=== PATIENT | male | born 1970 | race Caucasian/White ===

== ENCOUNTER 2021-11-22 19:27 | Observation (INO) | payer OTHER, MEDICAID, SELFPAY ==
[2021-11-22 19:37] VITALS: BP 145/95; PULSE 90; RESP 18; TEMP 36.9; O2SAT 98; BMI 25.0
--- NOTE | 2021-11-22 19:44 | DI.RAD.S_ITS ---
PROCEDURE: XR HAND RT MIN 3V INDICATIONS: smashed between garage doors TECHNIQUE: Three views of the hand acquired. COMPARISON: None. FINDINGS: Bones: There is a comminuted mildly displaced fracture of the tuft of the 5th distal phalanx. Carpal bones are normally aligned. No suspicious bony lesions. Soft tissues: No suspicious soft tissue calcifications. Soft tissue edema is seen in the 5th finger and throughout the hand and wrist. IMPRESSION: Comminuted mildly displaced fracture of the 5th distal phalangeal tuft. Dictated by: Jun Stokes M.D. on 11/22/2021 at 20:01 Approved by: Jun Stokes M.D. on 11/22/2021 at 20:05
--- NOTE | 2021-11-22 22:03 | ED.GENADULT ---
HPI - General Adult General Chief complaint: Extremity Injury, Upper Stated complaint: RIGHT HAND INJURY Time Seen by Provider: 11/22/21 21:57 Source: patient Mode of arrival: Ambulatory Limitations: no limitations History of Present Illness HPI narrative: 51-year-old male who couple days ago cut his right little finger smashed between 2 portions of a garage door. He states he received a cut to the end of the finger. Since that time he has had swelling and discomfort. His brother who the patient reports is a Dr. prescribed him Bactrim. He has been on this for 3 days. He is here for continued discomfort and swelling. No fevers. Review of Systems Constitutional Constitutional: Denies fever(s) Musculoskeletal Comments: Pain to right little finger Integumentary/Breasts Comments: Swelling and redness to right hand Neurologic Neurologic: Reports system reviewed and no additional complaints, except as documented Hematologic/Lymphatic On Anticoagulants: No Patient History Medical History Patient denies medical problems Social History Smoking Status: Current every day smoker Smoking Status: Current every day smoker tobacco type: cigarettes and vaping alcohol intake frequency: 0-2 drinks per day Alcohol type: beer Substance Use Type: marijuana Exam Initial Vital Signs Initial Vital Signs: Vital Signs Temperature 98.4 F 11/22/21 19:37 Pulse Rate 90 11/22/21 19:37 Respiratory Rate 18 11/22/21 19:37 Blood Pressure 145/95 H 11/22/21 19:37 Pulse Oximetry 98 11/22/21 19:37 Const General: cooperative, healthy appearing and comfortable [facility] Head: normal to inspection and normocephalic Cardio Pulses: radial pulses present on the right Skin Other: Patient has skin tears had the distal little finger on the medial aspect. He has redness extending up the finger and on the dorsum of the right hand and also extending up the forearm to just distal to the elbow. Neuro Sensory Exam: no sensory deficits noted Extrem Other: Patient is tender on the most distal aspect of the right little finger. Does have tenderness with flexion-extension of the D IP joint. The PIP and MCP joint unremarkable. He does have a swollen right hand a swollen right forearm. His compartments are soft to palpation and not tender. Course Orders Ordered: ED Orders 11/22/21 19:44 XR hand RT min 3V Stat 11/22/21 23:10 Basic Metabolic Panel Stat Blood Culture Stat Complete Blood Count AUTO DIFF Stat Lactate (Lactic Acid) Stat 11/22/21 23:26 COVID19 -Nasal swab/Pre-Proc Stat Discontinued Medications Vancomycin HCl (Vancomycin) 1,000 mg in 200 mls @ 200 mls/hr IV NOW ONE Stop: 11/22/21 23:02 Last Infusion: 11/23/21 01:17 Dose: 0 mls/hr Documented by: Admin: 11/22/21 23:20 Dose: 200 mls/hr Documented by: KARLEE Ceftriaxone Sodium 1,000 mg/ (Sodium Chloride) 100 mls @ 200 mls/hr IV NOW ONE Stop: 11/22/21 22:04 Last Admin: 11/23/21 01:22 Dose: 200 mls/hr Documented by: KARLEE Vital Signs Vital signs: Vital Signs - 8 hr 11/22/21 19:37 Temperature 98.4 F Pulse Rate 90 Respiratory Rate 18 Blood Pressure 145/95 H Pulse Oximetry 98 Medical Decision Making Lab Data Lab results reviewed: Yes I reviewed the patient's lab results. Result diagrams: 11/22/21 23:10 11/22/21 23:10 Imaging Data Extremity x-ray #1: Radiologist's Impression: [place] [address] XRay Report Signed Patient: Kosta Fournier MR#: [id number] : 1970 Acct:[id number] Age/Sex: 51 / M Date of Service: 11/22/21 Loc: ED Accession Number: [id number] ?? Procedure: XR hand RT min 3V Ordering Provider: Augusto Perez D.O. PROCEDURE:? XR HAND RT MIN 3V ? INDICATIONS:? smashed between garage doors ? TECHNIQUE:? Three views of the hand acquired.? ? COMPARISON:? None. ? FINDINGS:? ? Bones:? There is a comminuted mildly displaced fracture of the tuft of the 5th distal phalanx.? Carpal bones are normally aligned.? No suspicious bony lesions.? ? Soft tissues:? No suspicious soft tissue calcifications.? Soft tissue edema is seen in the 5th finger and throughout the hand and wrist. ? ? IMPRESSION:? Comminuted mildly displaced fracture of the 5th distal phalangeal tuft. ? ? Dictated by: Jun Stokes M.D. on 11/22/2021 at 20:01 ? ? Approved by: Jun Stokes M.D. on 11/22/2021 at 20:05?? MDM Narrative Medical decision making narrative: Patient does have a tuft fracture the distal little finger. Has an obvious cellulitis to his little finger and hand and right forearm that his worsening despite 3 days of Bactrim. Patient not septic. Compartments are soft. Patient does require admission for IV antibiotics given the failure of outpatient oral antibiotics. Discusses the patient expressed understanding and agreement. Discussed case with LIZBETH Casas the night Hospital provider will admit for further evaluation and treatment. Discharge Plan Departure Patient Disposition: Admitted as Observation Clinical Impression: Cellulitis, Finger fracture, right Admit Date/Time: 11/22/21 22:20 Admit Provider: Heather Casas
[2021-11-22] MEDS: VANCOMYCIN 1,000 MG/200 ML PIGGYBACK 200 MG IV (23:20)
[2021-11-22 23:23] LABS: Add Manual Diff / Slide Review NO; Basophils Absolute Auto 100 /uL (0-100); Basophils Percent Auto 0.9 % (0-2); Eosinophils Absolute Auto 100 /uL (0-450); Eosinophils Percent Auto 1.4 % (2-4); Hematocrit 46.5 % (41-53); Hemoglobin 15.6 g/dL (13.5-17.5); Lymphocytes Absolute Auto 2200 /uL (1100-4500); Mean Corpuscular HGB Conc 33.5 % (30-36); Mean Corpuscular Hemoglobin 30.5 PG (26-34); Mean Corpuscular Volume 91.2 fL (80-100); Monocytes Absolute Auto 400 /uL (0-900); Monocytes Percent Auto 4.5 % (3-14); Neutrophils Absolute Auto 5900 /uL (1500-7000); Neutrophils Percent Auto 68.2 % (50-75); Platelet Count 292 X10^3/uL (150-400); Red Cell Distribution Width 13.4 % (11.6-14.8); White Blood Cell Count 8.7 X10^3/uL (4.5-11.0)
[2021-11-22 23:31] LABS: BUN Creatinine Ratio 15.6 (6-22); Blood Urea Nitrogen 12 mg/dL (9-20); Calcium 8.9 mg/dL (8.4-10.2); Carbon Dioxide 28 mmol/L (22-32); Chloride 103 mmol/L (98-107); Estimated Glomerular Filt Rate > 60.0 mL/min (>60); Glucose 126 mg/dL (70-100); HEMOLYSIS 17 (0-50); Potassium 3.9 mmol/L (3.4-5.1); Sodium 136 mmol/L (137-145)
[2021-11-22 23:44] LABS: COVID19 -Nasal RAPID Negative (Negative)
[2021-11-22 23:57] LABS: Lactate (Lactic Acid) 1.2 mmol/L (0.7-2.1)
[2021-11-23] VITALS (12 sets, daily range): BP systolic 102–150; BP diastolic 53–98; PULSE 67–98; RESP 14–20; TEMP 36.2–36.9; O2SAT 96–99; BMI 25.0
[2021-11-23] MEDS: cefTRIAXone 1,000 MG in SODIUM CHLORIDE 0.9% 100 ML 200 ML IV ×2 (01:22→20:58)
[2021-11-23] MEDS: SODIUM CHLORIDE 0.9% 1,000 ML 100 ML IV ×2 (06:11→18:49)
[2021-11-23] MEDS: VANCOMYCIN 1,500 MG/300 ML PIGGYBACK 200 MG IV (06:11)
--- NOTE | 2021-11-23 07:53 | P.HP_ITS ---
History of Present Illness History of Present Illness Date Patient Seen: 11/23/21 Time Patient Seen: 05:11 Chief complaint: RIGHT HAND INJURY Narrative: Kosta Fournier is a 51-year-old male with no medical history or medications who couple days ago he smashed his right hand in a garage door, and cut to the end of his 5th finger.?The patient notes that his right hand has had increasing redness, swelling, and discomfort.? The patient reports a doctor prescribed him Bactrim, which he took x 3 days, but his hand continued to worsen. The patient denies chest pain, shortness of breath, abdominal pain, nausea, vomiting, fever, body aches, or chills. 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 Patient's vitals upon admit were stable temp 97.1?, BP 125/98, HR 77, RR 16, O2 saturation 98% on room air. Patient's labs were grossly within normal limits, lactate was negative patient's right hand x-ray demonstrated comminuted mildly displaced fracture of the 5th distal phalangeal tuft. Patient admitted for right hand, forearm cellulitis, with 5th digit mildly displaced fracture. Patient History Medical History Patient denies medical problems Surgical History (Updated 11/24/21 @ 04:09 by OZ Frias) History of carpal tunnel surgery of left wrist History of carpal tunnel surgery of right wrist History of tonsillectomy Family & Social History Family History Mother Cancer Father Diabetes mellitus Social History: household members significant other,children Prior Living Arrangements House Safety & Behavioral: Feels Safe in Current Yes Environment Been Physically Hurt or No Threatened By a Person Suicidal Ideation Description None Suicide Plan Description No Plan Tobacco & Substance use: Tobacco type cigarettes Smoking Status Current every day smoker Smoking packs per day 0.75 alcohol intake current alcohol intake frequency 0-2 drinks per day Substance Use Type marijuana Meds Home Medications and Allergies Home Medications Medication Instructions Recorded Confirmed Type sulfamethoxazole 800 1 tab PO BID 11/23/21 11/23/21 History mg-trimethoprim 160 mg tablet Allergies Allergy/AdvReac Type Severity Reaction Status Date / Time No Known Drug Allergies Allergy Verified 11/23/21 09:48 Review of Systems Review of Systems Narrative: All 12 point systems reviewed with the patient and are negative except otherwise documented. Exam Vital Signs (past 8 hours): - 11/23/21 01:15 11/23/21 02:05 11/23/21 05:36 Temperature 97.1 F L 98.0 F Pulse Rate 84 77 80 Respiratory Rate 16 16 20 Blood Pressure 144/87 H 125/98 H 148/85 H Pulse Oximetry 99 98 97 11/23/21 07:43 Temperature 98.5 F Pulse Rate 87 Respiratory Rate 16 Blood Pressure 150/84 H Pulse Oximetry 97 Oxygen Delivery Method Room Air Narrative Exam Narrative: General: Patient is a well-developed, well-nourished male in no distress at this time. HEENT: Normocephalic, atraumatic, extraocular muscles intact, oral pharynx is clear and mucous membranes are moist. Neck is supple and symmetric, trachea is midline, no adenopathy, no thyroid enlargement, nontender, no masses palpated. Negative for JVD Chest: Normal AP diameter and contour without kyphoscoliosis, no nasal flaring, retractions, or tachypneic labored Lungs: Auscultation of all lung chamberlain are clear without adventitious sounds, wheezes, rhonchi, or rales. Cardio: S1 & S2 with regular rate and rhythm without murmur, rubs, or gallops, no carotid bruit, no cardiac pulsations present. Abdomen: Soft nontender, negative for organomegaly, or masses. Bowel sounds are present in all 4 quadrants without guarding or rebound, no CVA tenderness. Musculoskeletal: Right hand is erythemic, inflammation, warm to touch, blanchab le, radial pulse intact, raised erythemic area to the dorsal aspect of the wrist, distal end of the phalynx, medial paronychial infection. Patient is able to consultant with the right hand. Muscle strength and tone are equal within normal limits, no deformity, crepitus, effusions, cyanosis, clubbing or edema present. Full range of motion intact radial and pedal pulses are normal. Skin: see right hand documendation above. Warm dry and intact without rashes, ulcerations or petechiae. Neuro: Alert and orientated x3, strength is +5/5 in all extremities, sensation to touch intact, no gross deficits noted of cranial nerves. Psych: Patient has a well-kept appearance, appropriate affect, mental status attitude thought context and judgment are appropriate for age. Objective Labs Result Diagrams: 11/23/21 08:40 11/23/21 08:40 Labs: Laboratory Results - last 24 hr 11/22/21 11/22/21 11/22/21 23:10 23:10 23:10 WBC 8.7 RBC 5.10 Hgb 15.6 Hct 46.5 MCV 91.2 MCH 30.5 MCHC 33.5 RDW 13.4 Plt Count 292 Neut % (Auto) 68.2 Lymph % (Auto) 25.0 [place] % (Auto) 4.5 Eos % (Auto) 1.4 L Baso % (Auto) 0.9 Neut # (Auto) 5900 Lymph # (Auto) 2200 [place] # (Auto) 400 Eos # (Auto) 100 Baso # (Auto) 100 Sodium 136 L Potassium 3.9 Chloride 103 Carbon Dioxide 28 BUN 12 Creatinine 0.77 Estimated GFR > 60.0 BUN/Creatinine Ratio 15.6 Glucose 126 H Lactate 1.2 Calcium 8.9 Nasal Screen MRSA (PCR) SARS-CoV-2 (PCR) 11/22/21 11/23/21 23:26 04:15 WBC RBC Hgb Hct MCV MCH MCHC RDW Plt Count Neut % (Auto) Lymph % (Auto) [place] % (Auto) Eos % (Auto) Baso % (Auto) Neut # (Auto) Lymph # (Auto) [place] # (Auto) Eos # (Auto) Baso # (Auto) Sodium Potassium Chloride Carbon Dioxide BUN Creatinine Estimated GFR BUN/Creatinine Ratio Glucose Lactate Calcium Nasal Screen MRSA (PCR) Negative for mrsa SARS-CoV-2 (PCR) Negative Assessment & Plan Assessment & Plan narrative: Kosta Fournier is a 51-year-old male with no medical history or medications who couple days ago he smashed his right hand in a garage door, and cut to the end of his 5th finger.? Patient requires admittance for IV hydration, antibiotics, and evaluation by Dr. Marisabel Severino orthopedics. 1. Right hand/forearm cellulitis, with mildly displaced fracture of the 5th distal phalangeal tuft, and paronychial, acute, present on admission -Dr. Severino consult placed -It should be noted that the patient works in [employer] works. -possible dorsal infectious area of the right wrist. -vancomycin and Rocephin -blood cultures, wound cultures pending -anti-inflammatories and pain control -NS@100cc/hr -Elevated hand & apply Ice as tolerated. Code status:Full Surrogate decision maker: Bernice GARCIA PCR:Negative DVT/VTE prophylaxis:SCD's and lovenox Disposition: Patient admitted for observation expected length of stay less than 2 midnights. I have utilized all available immediate resources to obtain, update, or review the patient's current medications. I confirmed that the patient's advanced care plan is present, Code status is documented and/or surrogate decision maker is listed in the patient's medical record. Time Spent With Patient Critical Care time: I spent a total of [] minutes of critical care time on this patient's care today; this time is exclusive of procedural time. Quality VTE Deep Vein Thrombosis/Pulmonary Embolism Present on Admission: No
[2021-11-23 08:55] LABS: Add Manual Diff / Slide Review NO; Basophils Absolute Auto 100 /uL (0-100); Basophils Percent Auto 1.1 % (0-2); Eosinophils Absolute Auto 200 /uL (0-450); Eosinophils Percent Auto 2.2 % (2-4); Hematocrit 44.6 % (41-53); Lymphocytes Absolute Auto 2000 /uL (1100-4500); Lymphocytes Percent Auto 26.1 % (25-40); Mean Corpuscular HGB Conc 33.6 % (30-36); Mean Corpuscular Hemoglobin 30.9 PG (26-34); Mean Corpuscular Volume 92.1 fL (80-100); Monocytes Absolute Auto 500 /uL (0-900); Monocytes Percent Auto 6.5 % (3-14); Neutrophils Absolute Auto 4900 /uL (1500-7000); Neutrophils Percent Auto 64.1 % (50-75); Platelet Count 289 X10^3/uL (150-400); Red Blood Cell Count 4.85 X10^6/uL (4.5-5.9); Red Cell Distribution Width 13.6 % (11.6-14.8); White Blood Cell Count 7.7 X10^3/uL (4.5-11.0)
[2021-11-23 09:01] LABS: INR 1.1 (0.9-1.3); Prothrombin Time 12.6 SECONDS (10.1-12.7)
[2021-11-23 09:07] LABS: BUN Creatinine Ratio 14.3 (6-22); Blood Urea Nitrogen 11 mg/dL (9-20); Calcium 8.5 mg/dL (8.4-10.2); Carbon Dioxide 27 mmol/L (22-32); Chloride 103 mmol/L (98-107); Estimated Glomerular Filt Rate > 60.0 mL/min (>60); Glucose 121 mg/dL (70-100); HEMOLYSIS < 15 (0-50); Magnesium 2.1 mg/dL (1.6-2.3); Potassium 4.3 mmol/L (3.4-5.1); Sodium 136 mmol/L (137-145)
[2021-11-23] MEDS: ENOXAPARIN 40 MG/0.4 ML SYRINGE SUBCUT (09:44)
--- NOTE | 2021-11-23 11:52 | CM.DANOTE ---
DCP: Case received, EMR reviewed and met with patient. Introduced self and role. Was able to obtain information regarding patient's baseline activity level and current living situation. DCP assessment completed with information currently available. Patient is a 51 year old male who admitted yesterday evening to the care of the hospitalist team. PCP: Unknown at this time. Payer: confirmed: [employer]. Patient came to the hospital via private vehicle secondary to having a right hand injury. Patient had smashed his finger in his garage door. He ended up with mildly displaced fracture. He is currently getting IV ABO. According to notes, his brother, who is a doctor, had prescribed Bactrim, which he had been on for 3 days. He hand had then noted some increased swelling and discomfort. Discussed patient during team rounds, and hospitalist, Dr. Ac, placed an ortho consult. Met with patient in his room. He is alert and oriented. 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 He resides in [place] with his friend, Ginna. P: DCP to continue to follow for any needs. Patient should be able to go home when he is deemed medically stable. Will see what ortho recommends. Florence Burnette RN/[employer] Discharge Planning/Care Management CM Discharge Assessment Start: 11/23/21 11:48 Freq: Status: Active Protocol: Document 11/23/21 11:49 (Rec: 11/23/21 11:52 [id number]) Discharge Planning Assessment Assigned Cast Associate Florence Burnette RN/[employer] Advance Directives? No History Provided By Patient,Medical Record Prior Living Arrangements House Household Members significant other,children Type of transporation used prior to Drives own vehicle admit Independent with ADL's Yes Is patient alert and oriented? Yes Caregiver for Another No Barriers to Discharge No Discharge Plan Home Transportation Arrangement Friend Referrals Initiated None needed Whiteboard Updated in Patient Room with Yes name and ext. # of Cast Associate Review Status In Process Next Review Type Continued Stay Review
--- NOTE | 2021-11-23 12:52 | P.PN_ITS ---
Subjective Subjective Date Patient Seen: 11/23/21 Time Patient Seen: 12:52 Interval history: Brief update note. Patient is 51 year old male, no significant known PMH who presented with worsening R hand pain and swelling. Has a R 5th finger distal phalynx fracture, on exam possibly with paronychial infection and a probable infectious nodule on the dorsal aspect of his wrist as well. Remains on antibiotics. Pending orthopedic surgery evaluation. Exam Vital Signs (past 8 hours): - 11/23/21 05:36 11/23/21 07:23 11/23/21 07:43 Temperature 98.0 F 98.5 F Pulse Rate 80 87 Respiratory Rate 20 16 Blood Pressure 148/85 H 150/84 H Pulse Oximetry 97 98 97 11/23/21 09:30 11/23/21 11:00 Temperature 98.2 F Pulse Rate 98 H Respiratory Rate 20 Blood Pressure 102/53 L Pulse Oximetry 97 96 Oxygen Delivery Method Room Air Oxygen Flow Rate 0 Objective Labs Result Diagrams: 11/23/21 08:40 11/23/21 08:40 Labs: Laboratory Results - last 24 hr 11/22/21 11/22/21 11/22/21 23:10 23:10 23:10 WBC 8.7 RBC 5.10 Hgb 15.6 Hct 46.5 MCV 91.2 MCH 30.5 MCHC 33.5 RDW 13.4 Plt Count 292 Neut % (Auto) 68.2 Lymph % (Auto) 25.0 [place] % (Auto) 4.5 Eos % (Auto) 1.4 L Baso % (Auto) 0.9 Neut # (Auto) 5900 Lymph # (Auto) 2200 [place] # (Auto) 400 Eos # (Auto) 100 Baso # (Auto) 100 PT INR Sodium 136 L Potassium 3.9 Chloride 103 Carbon Dioxide 28 BUN 12 Creatinine 0.77 Estimated GFR > 60.0 BUN/Creatinine Ratio 15.6 Glucose 126 H Lactate 1.2 Calcium 8.9 Magnesium Nasal Screen MRSA (PCR) SARS-CoV-2 (PCR) 11/22/21 11/23/21 11/23/21 23:26 04:15 08:40 WBC 7.7 RBC 4.85 Hgb 15.0 Hct 44.6 MCV 92.1 MCH 30.9 MCHC 33.6 RDW 13.6 Plt Count 289 Neut % (Auto) 64.1 Lymph % (Auto) 26.1 [place] % (Auto) 6.5 Eos % (Auto) 2.2 Baso % (Auto) 1.1 Neut # (Auto) 4900 Lymph # (Auto) 2000 [place] # (Auto) 500 Eos # (Auto) 200 Baso # (Auto) 100 PT INR Sodium Potassium Chloride Carbon Dioxide BUN Creatinine Estimated GFR BUN/Creatinine Ratio Glucose Lactate Calcium Magnesium Nasal Screen MRSA (PCR) Negative for mrsa SARS-CoV-2 (PCR) Negative 11/23/21 11/23/21 08:40 08:40 WBC RBC Hgb Hct MCV MCH MCHC RDW Plt Count Neut % (Auto) Lymph % (Auto) [place] % (Auto) Eos % (Auto) Baso % (Auto) Neut # (Auto) Lymph # (Auto) [place] # (Auto) Eos # (Auto) Baso # (Auto) PT 12.6 INR 1.1 Sodium 136 L Potassium 4.3 Chloride 103 Carbon Dioxide 27 BUN 11 Creatinine 0.77 Estimated GFR > 60.0 BUN/Creatinine Ratio 14.3 Glucose 121 H Lactate Calcium 8.5 Magnesium 2.1 Nasal Screen MRSA (PCR) SARS-CoV-2 (PCR) [facility] Medical History Patient denies medical problems Social History household members: significant other and children Smoking Status: Current every day smoker alcohol intake: current Assessment & Plan Time Spent With Patient Critical Care time: I spent a total of [] minutes of critical care time on this patient's care today; this time is exclusive of procedural time. Quality VTE Deep Vein Thrombosis/Pulmonary Embolism Present on Admission: No
[2021-11-23] MEDS: VANCOMYCIN 1,250 MG/250 ML PIGGYBACK 250 MG IV ×2 (13:25→21:54)
[2021-11-23] MEDS: NICOTINE 21 MG PATCH TOP (17:23)
--- NOTE | 2021-11-23 20:31 | PM.HP.1 ---
History of Present Illness History of Present Illness Date Patient Seen: 11/23/21 Time Patient Seen: 10:30 Chief complaint: RIGHT HAND INJURY Narrative: This is a 51-year-old gentleman who accidentally slammed his right small finger in a door. He noted right finger pain. He noted he was having problems with progressive swelling of his entire right hand. It was initially bloody right after the injury. He denies a history of fever chills. He notes that it is not getting better and it was progressively worsening some and so he came to the emergency room because he was worried about an infection. He has not had any high fevers or chills. Patient History Medical History Patient denies medical problems Family & Social History Social History: household members significant other,children Prior Living Arrangements House Safety & Behavioral: Feels Safe in Current Yes Environment Been Physically Hurt or No Threatened By a Person Suicidal Ideation Description None Suicide Plan Description No Plan Tobacco & Substance use: Tobacco type cigarettes Smoking Status Current every day smoker Smoking packs per day 0.75 alcohol intake current alcohol intake frequency 0-2 drinks per day Substance Use Type marijuana Meds Home Medications and Allergies Home Medications Medication Instructions Recorded Confirmed Type sulfamethoxazole 800 1 tab PO BID 11/23/21 11/23/21 History mg-trimethoprim 160 mg tablet Allergies Allergy/AdvReac Type Severity Reaction Status Date / Time No Known Drug Allergies Allergy Verified 11/23/21 09:48 Review of Systems Review of Systems Narrative: Denies specifically high fevers or chills. Does note significant right hand pain. Has been attempting to elevate and ice. ROS: Yes All systems reviewed with the patient and are negative except as otherwise documented Exam Vital Signs (past 8 hours): - 11/23/21 13:00 11/23/21 15:00 11/23/21 17:00 Temperature 98.3 F Pulse Rate 67 Respiratory Rate 14 Blood Pressure 139/82 Pulse Oximetry 96 98 98 Oxygen Delivery Method Room Air Oxygen Flow Rate 0 Narrative Exam Narrative: HEENT is benign, lungs are clear, cor regular rate and rhythm, abdomen soft and benign, examination of his right upper extremity shows mild swelling in the right small finger he has focal tenderness along the radial aspect of his nail and slightly fluctuant region, there was also about a 1 cm erythematous mass on the dorsum of his wrist which is predominantly in the subcutaneous tissues it is not specifically fluctuant, there is some proximal erythema and mild adenopathy at the elbow Objective Labs Result Diagrams: 11/23/21 08:40 11/23/21 08:40 Labs: Laboratory Results - last 24 hr 11/22/21 11/22/21 11/22/21 23:10 23:10 23:10 WBC 8.7 RBC 5.10 Hgb 15.6 Hct 46.5 MCV 91.2 MCH 30.5 MCHC 33.5 RDW 13.4 Plt Count 292 Neut % (Auto) 68.2 Lymph % (Auto) 25.0 [place] % (Auto) 4.5 Eos % (Auto) 1.4 L Baso % (Auto) 0.9 Neut # (Auto) 5900 Lymph # (Auto) 2200 [place] # (Auto) 400 Eos # (Auto) 100 Baso # (Auto) 100 PT INR Sodium 136 L Potassium 3.9 Chloride 103 Carbon Dioxide 28 BUN 12 Creatinine 0.77 Estimated GFR > 60.0 BUN/Creatinine Ratio 15.6 Glucose 126 H Lactate 1.2 Calcium 8.9 Magnesium Nasal Screen MRSA (PCR) SARS-CoV-2 (PCR) 11/22/21 11/23/21 11/23/21 23:26 04:15 08:40 WBC 7.7 RBC 4.85 Hgb 15.0 Hct 44.6 MCV 92.1 MCH 30.9 MCHC 33.6 RDW 13.6 Plt Count 289 Neut % (Auto) 64.1 Lymph % (Auto) 26.1 [place] % (Auto) 6.5 Eos % (Auto) 2.2 Baso % (Auto) 1.1 Neut # (Auto) 4900 Lymph # (Auto) 2000 [place] # (Auto) 500 Eos # (Auto) 200 Baso # (Auto) 100 PT INR Sodium Potassium Chloride Carbon Dioxide BUN Creatinine Estimated GFR BUN/Creatinine Ratio Glucose Lactate Calcium Magnesium Nasal Screen MRSA (PCR) Negative for mrsa SARS-CoV-2 (PCR) Negative 11/23/21 11/23/21 08:40 08:40 WBC RBC Hgb Hct MCV MCH MCHC RDW Plt Count Neut % (Auto) Lymph % (Auto) [place] % (Auto) Eos % (Auto) Baso % (Auto) Neut # (Auto) Lymph # (Auto) [place] # (Auto) Eos # (Auto) Baso # (Auto) PT 12.6 INR 1.1 Sodium 136 L Potassium 4.3 Chloride 103 Carbon Dioxide 27 BUN 11 Creatinine 0.77 Estimated GFR > 60.0 BUN/Creatinine Ratio 14.3 Glucose 121 H Lactate Calcium 8.5 Magnesium 2.1 Nasal Screen MRSA (PCR) SARS-CoV-2 (PCR) x-rays show comminuted right distal finger tip fracture with acceptable alignment Assessment & Plan Assessment and plan (1) Cellulitis: Status: Acute (2) Finger fracture, right: Status: Acute Assessment & Plan narrative: His a comminute right small finger distal phalanx fracture. He also has hand Cl cellulitis and some obvious swelling on the dorsum of his right hand. I do think he should remain on IV antibiotics. He has some swelling along his nail but does not have a true Felon at this point. He also has swelling on the dorsum of his hand but it is not suggestive of a true abscess. The grease and see how he responds to the IV antibiotics. I did tell him it is okay for him to start absence soaks for his small finger as he is having pain predict particularly along the radial border of his nail. He may require I and D if he fails to respond to conservative treatment. Time Spent With Patient Critical Care time: I spent a total of [] minutes of critical care time on this patient's care today; this time is exclusive of procedural time. Quality VTE Deep Vein Thrombosis/Pulmonary Embolism Present on Admission: No
--- NOTE | 2021-11-24 00:40 | PC.NURSE ---
Patient is alert and oriented. Breath sounds CTA with RA sat of 97%. HRR. Denied nausea. BT hypoactive. Denied dysuria, frequency or urgency with urination. Is independent with mobility. Right hand/wrist is swollen with noted reddened area above wrist posteriorly. Right 5th finger noted to have abraised area at distal end. Denied pain. Able to do finger-thumb motion although limited in 5th finger. Refusing SCD's as is up independent in room. On contact isolation as wound culture gram stain + for gram + cocci. Fall risk score is low.
[2021-11-24 03:07] VITALS: BP 130/75; PULSE 70; RESP 18; TEMP 37.2; O2SAT 98
[2021-11-24 04:36] VITALS: O2SAT 98
[2021-11-24] MEDS: VANCOMYCIN TROUGH 1 REQUEST MISC (05:22)
[2021-11-24 06:01] LABS: Vancomycin Trough 9.4 ug/mL (10-20)
[2021-11-24] MEDS: VANCOMYCIN 1,250 MG/250 ML PIGGYBACK 250 MG IV (06:12)
[2021-11-24] MEDS: SODIUM CHLORIDE 0.9% 1,000 ML 100 ML IV (06:17)
--- NOTE | 2021-11-24 07:54 | P.PN_ITS ---
Subjective Subjective Date Patient Seen: 11/24/21 Time Patient Seen: 07:55 Interval history: Patient seen with Dr. Severino this morning. Patient states pain and swelling has improved. Denies fever chills. Exam Vital Signs (past 8 hours): - 11/24/21 03:07 11/24/21 04:36 Temperature 99.0 F Pulse Rate 70 Respiratory Rate 18 Blood Pressure 130/75 Pulse Oximetry 98 98 Oxygen Delivery Method Room Air Oxygen Flow Rate 0 Narrative Exam Narrative: 51-year-old male resting comfortably in bedside chair no apparent distress. Right 5th Finger swelling has improved. No erythema about the finger. Fingernail is intact. Mild tenderness to palpation distal tip of finger. 2 cm in diameter area of erythema along the dorsum of the right wrist. There is no fluctuance and nontender to palpation. Good range of motion of all fingers without pain. No pain with wrist flexion extension. Objective Labs Result Diagrams: 11/23/21 08:40 11/23/21 08:40 Labs: Laboratory Results - last 24 hr 11/23/21 11/23/21 11/23/21 08:40 08:40 08:40 WBC 7.7 RBC 4.85 Hgb 15.0 Hct 44.6 MCV 92.1 MCH 30.9 MCHC 33.6 RDW 13.6 Plt Count 289 Neut % (Auto) 64.1 Lymph % (Auto) 26.1 Stanley % (Auto) 6.5 Eos % (Auto) 2.2 Baso % (Auto) 1.1 Neut # (Auto) 4900 Lymph # (Auto) 2000 Stanley # (Auto) 500 Eos # (Auto) 200 Baso # (Auto) 100 PT 12.6 INR 1.1 Sodium 136 L Potassium 4.3 Chloride 103 Carbon Dioxide 27 BUN 11 Creatinine 0.77 Estimated GFR > 60.0 BUN/Creatinine Ratio 14.3 Glucose 121 H Calcium 8.5 Magnesium 2.1 Vancomycin Trough 11/24/21 05:22 WBC RBC Hgb Hct MCV MCH MCHC RDW Plt Count Neut % (Auto) Lymph % (Auto) Stanley % (Auto) Eos % (Auto) Baso % (Auto) Neut # (Auto) Lymph # (Auto) Stanley # (Auto) Eos # (Auto) Baso # (Auto) PT INR Sodium Potassium Chloride Carbon Dioxide BUN Creatinine Estimated GFR BUN/Creatinine Ratio Glucose Calcium Magnesium Vancomycin Trough 9.4 L PFSH Medical History Patient denies medical problems Surgical History History of carpal tunnel surgery of left wrist History of carpal tunnel surgery of right wrist History of tonsillectomy Family History Mother Cancer Father Diabetes mellitus Social History household members: significant other and children Smoking Status: Current every day smoker alcohol intake: current Assessment & Plan Assessment & Plan narrative: Comminuted right 5th finger distal phalanx fracture. Splint follow-up with [facility] in 1 week Multimodal pain management Hand cellulitis, improving, switch to oral antibiotics per hospitalist, follow- up with [facility] in 1 week for recheck or earlier if any worsening id erythema, pain, fever or chills Disposition: Discharge home when medically stable per hospitalist Time Spent With Patient Critical Care time: I spent a total of [] minutes of critical care time on this patient's care today; this time is exclusive of procedural time. Quality VTE Deep Vein Thrombosis/Pulmonary Embolism Present on Admission: No
[2021-11-24 09:00] VITALS: O2SAT 98
--- NOTE | 2021-11-24 09:08 | P.DS_ITS ---
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 The patient reports a doctor prescribed him Bactrim, which he took x 3 days, but his hand continued to worsen. The patient denies chest pain, shortness of breath, abdominal pain, nausea, vomiting, fever, body aches, or chills. 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 Patient's vitals upon admit were stable temp 97.1?, BP 125/98, HR 77, RR 16, O2 saturation 98% on room air.? Patient's labs were grossly within normal limits, lactate was negative patient's right hand x-ray demonstrated comminuted mildly displaced fracture of the 5th distal phalangeal tuft.? Patient admitted for right hand, forearm cellulitis, with 5th digit mildly displaced fracture. Discharge Providers Provider Date of admission: 11/22/21 22:20 Discharge Date: 11/24/21 Consults: 11/23/21 05:09 Consult to Physician Routine Comment: Consulting Provider: Marisabel Severino Reason for consultation: Rt hand cellulitis, 5th digit trauma injury/cellulitis Has provider been notified: No Discharge provider: Armando Ac DO Summary Hospital Course Discharge Diagnosis: 1. 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 He was given a prescription for an antibiotic as an outpatient but his swelling continued to worsen. He also developed a nodule on the dorsal aspect of his right wrist. He was started on IV antibiotics after failure of outpatient therapy and improved very quickly. He was seen and evaluated by Orthopedic surgery who did not recommend any surgical interventions at this time and recommended outpatient follow-up after improvement in his erythema and hand appearance. He was discharged on oral doxycycline and metronidazole for an additional 10 days. Exam Vital Signs (past 8 hours): - 11/24/21 03:07 11/24/21 04:36 Temperature 99.0 F Pulse Rate 70 Respiratory Rate 18 Blood Pressure 130/75 Pulse Oximetry 98 98 Oxygen Delivery Method Room Air Oxygen Flow Rate 0 Narrative Exam Narrative: General:? Patient is a well-developed, well-nourished male in no distress at this time. Lungs:?CTA Cardio:?RRR no m/r/g Musculoskeletal: Right hand has minimal erythema. No induration today. Swelling is improved. nodule on dorsal aspect of wrist is slightly smaller. Objective Labs Result Diagrams: 11/23/21 08:40 11/23/21 08:40 Labs: Laboratory Results - last 24 hr 11/23/21 11/24/21 08:40 05:22 Sodium 136 L Potassium 4.3 Chloride 103 Carbon Dioxide 27 BUN 11 Creatinine 0.77 Estimated GFR > 60.0 BUN/Creatinine Ratio 14.3 Glucose 121 H Calcium 8.5 Magnesium 2.1 Vancomycin Trough 9.4 L [facility] Medical History Patient denies medical problems Surgical History History of carpal tunnel surgery of left wrist History of carpal tunnel surgery of right wrist History of tonsillectomy Family History Mother Cancer Father Diabetes mellitus Social History household members: significant other and children Smoking Status: Current every day smoker alcohol intake: current Discharge Plan Discharge Plan Patient Disposition: Home Provider Discharge Comment: You were admitted to the hospital with swelling of your left hand. Found to have a small fracture and a skin infection near that site. You improved with antibiotics. Discharge home with two kinds of anitbiotics. Stop taking bactrim which you received earlier. Please follow up with [facility] in 1 week per their recommendations. Discharge orders & Medications Prescriptions: New doxycycline hyclate 100 mg tablet 100 mg PO BID 10 Days Qty: 20 0RF metronidazole 500 mg tablet 500 mg PO TID 10 Days Qty: 30 0RF Discontinued sulfamethoxazole-trimethoprim 800-160 mg tablet 1 tab PO BID 0RF Label Comments: TAKE ONE TABLET BY MOUTH TWICE DAILY Diet/Activity/Treatments Diet: Diet as Tolerated Activity: As tolerated Visit Report/Discharge Packet Instructions: DI for Finger Fracture, Doxycycline (By mouth) Discharge Data Attending Provider: Heather Casas VTE Deep Vein Thrombosis/Pulmonary Embolism Present on Admission: No
--- NOTE | 2021-11-24 09:32 | PC.NURSE ---
Pt is dressed and ready for discharge home. He has his own car here and is not taking any narcotics so feels safe to drive. IV has been removed. Went over d/c instructions with Pt. Discussed d/c meds, time of last dose, reviewed stroke education, encouraged fluid intake to prevent constipation or dehydration, reminded Pt that he is not to drink while on metronidazole and to finish both antibiotics as ordered. Recommended Pt consider taking probiotics if he starts to get diarrhea from the abx. Pt is to follow up with [facility] in 1 week. Pt denies further questions and was taken out via w/c by RN to pov with all belongings.
== END 2021-11-24 09:36 | disposition home or self-care (01) ==
LOC: ED 22:13 → AC 22:21
PROVIDERS: Admitting Provider Nurse Practitioner Family; Emergency Provider Emergency Medicine; Visit Provider Nurse Practitioner Family
DX: L03.113 Cellulitis of right upper limb (principal); S62.636A Displaced fracture of distal phalanx of right little finger, initial encounter for closed fracture; W24.0XXA Contact with lifting devices, not elsewhere classified, initial encounter; F17.210 Nicotine dependence, cigarettes, uncomplicated; Z20.822 Contact with and (suspected) exposure to COVID-19
CPT/HCPCS: 36415; 73130; 80048; 80202; 83605; 83735; 85025; 85610; 87040; 87070; 87075; 87077; 87147; 87186; 87205; 87635; 87797; 94760; 96361; 96365; 96366; 96367; 99283; 99284; 99406; C9803; G0378; J0696; J1650

== ENCOUNTER 2024-10-29 11:13 | Inpatient (IN) | payer OTHER, SELFPAY ==
[2021-11-23 01:57] VITALS: BMI 25.0
[2024-10-29] VITALS (27 sets, daily range): BP systolic 124–186; BP diastolic 82–104; PULSE 87–102; RESP 13–24; TEMP 36.3–37.4; O2SAT 86–100; BMI 31.4; BMI 30.8; BMI 28.8
--- NOTE | 2024-10-29 11:30 | PC.NURSE ---
Pt arrives by [facility]. Grapefruit sized swelling to right knee. Has scab in middle of knee.
--- NOTE | 2024-10-29 11:30 | ED.LOWEXIN ---
HPI - Extremity Injury (Lower) General Chief Complaint: Extremity Injury, Lower Stated Complaint: Knee septic Time Seen by Provider: 10/29/24 11:29 Source: EMS Mode of arrival: EMS History of Present Illness HPI Narrative: 54-year-old male with blister over his right knee 2 weeks ago, increasing pain and swelling to the right patellar area overnight, presented to ED [facility], transferred here by air for suspected right knee septic joint. He recalls having a blister over the anterior right patella about 2 weeks ago, no specific puncture or penetrating injury recalled. 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 Increasing pain and swelling overnight. No fall or injury or twisting mechanism. He has not feel feverish. Related Data Allergies Allergy/AdvReac Type Severity Reaction Status Date / Time No Known Drug Allergies Allergy Verified 11/23/21 09:48 Patient History Medical History Patient denies medical problems Surgical History History of carpal tunnel surgery of right wrist History of carpal tunnel surgery of left wrist History of tonsillectomy Family History Mother Cancer Father Diabetes mellitus Social History household members: spouse, significant other and children Smoking Status: Current every day smoker alcohol intake: current Smoking Status: Current every day smoker tobacco type: cigarettes and vaping alcohol intake frequency: 0-2 drinks per day Alcohol type: beer Exam Narrative Exam Narrative: GENERAL: Well-developed patient, in mild distress. HEAD: Atraumatic. Normocephalic. EYES: Pupils equal round and reactive. Extraocular motions intact. No scleral icterus. No injection or drainage. ENT: Nose without bleeding, purulent drainage. Throat without erythema, tonsillar hypertrophy or exudate. Airway patent. NECK: Trachea midline. Non tender CARDIOVASCULAR: Regular rate and rhythm without murmurs, gallops, or rubs. RESPIRATORY: Clear to auscultation. Breath sounds equal bilaterally. No wheezes, rales, or rhonchi. GASTROINTESTINAL: Abdomen soft, non-tender, nondistended. EXTREMITIES: Erythema over top of patella with noncrepitant tenderness, no gross knee effusion, inferior patellar pole eschar present without expressible fluid, no medial or lateral joint line tenderness BACK: Nontender without deformity or crepitance. No flank tenderness. NEURO: AOx3. Motor functions grossly nonfocal SKIN: No rash or erythema of visible areas Initial Vital Signs Initial Vital Signs: Vital Signs Pulse Rate 92 H 10/29/24 11:21 Pulse Oximetry 97 10/29/24 11:21 Course Orders Ordered: Acetaminophen (Acetaminophen 325 Mg Tablet) 650 mg PO Q6H [facility] Last Admin: 10/29/24 18:29 Dose: 650 mg Documented By: TLS Aspirin (Aspirin Ec 81 Mg Tablet) 81 mg PO BID [facility] Last Admin: 10/29/24 22:34 Dose: 81 mg Documented By: PARTH Bisacodyl (Bisacodyl 10 Mg Supp) 10 mg OH PRN PRN PRN Reason: Constipation Diphenhydramine HCl (Diphenhydramine 25 Mg Tablet) 50 mg PO Q6H PRN PRN Reason: mod to severe erythema, urticaria, or pruritis Diphenhydramine HCl (Diphenhydramine 50 Mg/Ml Vial) 50 mg IV Q6HR PRN PRN Reason: mild to moderate erythema, urticaria, or pruritis Docusate Sodium (Docusate 100 Mg Capsule) 100 mg PO BID [facility] Last Admin: 10/29/24 22:34 Dose: 100 mg Documented By: PARTH Ceftriaxone Sodium 2,000 mg/ (Sodium Chloride) 100 mls @ 200 mls/hr IV Q24H [facility] Vancomycin HCl (Vancomycin) 1,250 mg in 250 mls @ 250 mls/hr IV Q8H [facility] Last Admin: 10/29/24 22:34 Dose: 250 mls/hr Documented By: PARTH Lactated Ringer's (Lactated Ringers) 1,000 mls @ 100 mls/hr IV CONT [facility] Last Admin: 10/29/24 18:26 Dose: Not Given Documented By: TLS Ibuprofen (Ibuprofen 400 Mg Tablet) 400 mg PO Q4H [facility] Last Admin: 10/29/24 22:35 Dose: 400 mg Documented By: Admin: 10/29/24 18:25 Dose: Not Given Documented By: TLS Naloxone HCl (Naloxone 0.4 Mg/Ml Vial) 0.2 mg IV Q2MIN PRN PRN Reason: Opiate Reversal Ondansetron HCl (Ondansetron 4 Mg Odt) 4 mg PO Q4HR PRN PRN Reason: Nausea And Vomiting Ondansetron HCl (Ondansetron 4 Mg/2 Ml Inj) 4 mg IV Q4HR PRN PRN Reason: Nausea And Vomiting Oxycodone HCl (Oxycodone Ir 5 Mg Tablet) 5 mg PO Q3H PRN PRN Reason: Pain, Moderate (4-6) Polyethylene Glycol (Polyethylene Glycol 3350 17 Gm Powd.Pack) 17 gm PO DAILY [facility] Sennosides (Sennosides 8.6 Mg Tablet) 17.2 mg PO BEDTIME [facility] Last Admin: 10/29/24 22:34 Dose: 17.2 mg Documented By: AGFlorence Sodium Biphosphate/Sodium Phosphate (Fleets Enema) 1 each OH PRN PRN PRN Reason: Constipation Vancomycin HCl (Vancomycin Per Pharmacy) 1 request MISC NOW PRN PRN Reason: knee pain Vancomycin HCl (Vancomycin Trough) 1 request MISC 1300 ONE Stop: 10/30/24 13:01 Vancomycin HCl (Vancomycin Peak) 1 request MISC 1600 ONE Stop: 10/30/24 16:01 Discontinued Medications Acetaminophen (Acetaminophen 325 Mg Tablet) 650 mg PO Q6H PRN PRN Reason: Fever/Mild Pain (1-3) Benzocaine (Benzocaine/Menthol 1 Andriy Pkt) 1 each PO PRN PRN PRN Reason: Sore Throat Bupivacaine HCl (Bupivacaine 0.5% (Pf) 30 Ml Vial) 30 ml INJ NOW ONE Stop: 10/29/24 17:02 Last Admin: 10/29/24 17:01 Dose: 30 ml Documented By: CAYLA Sodium Chloride 1,000 ml/ (Gentamicin Sulfate 80 mg) 0 ml IRR NOW ONE Stop: 10/29/24 17:00 Last Admin: 10/29/24 17:00 Dose: 3 ml Documented By: CAYLA Hydromorphone HCl (Hydromorphone 0.5 Mg Inj) 0.5 mg IV NOW ONE Stop: 10/29/24 12:05 Last Admin: 10/29/24 12:12 Dose: 0.5 mg Documented By: Hydromorphone HCl (Hydromorphone 0.5 Mg Inj) 1 mg IV Q2H PRN PRN Reason: Pain, Severe (7-10) Last Admin: 10/29/24 15:18 Dose: 1 mg Documented By: RAE Hydromorphone HCl (Hydromorphone 1 Mg Inj) 0 mg IV Q5MIN PRN PRN Reason: Pain, Moderate (4-6) Hydromorphone HCl (Hydromorphone 1 Mg Inj) 0 mg IV Q5MIN PRN PRN Reason: Pain, Severe (7-10) Vancomycin HCl 2,000 mg/ (Sodium Chloride) 500 mls @ 250 mls/hr IV NOW ONE Stop: 10/29/24 12:48 Last Admin: 10/29/24 13:36 Dose: 250 mls/hr Documented By: Ceftriaxone Sodium 2,000 mg/ (Sodium Chloride) 100 mls @ 200 mls/hr IV NOW ONE Stop: 10/29/24 13:44 Last Infusion: 10/29/24 13:57 Dose: Infused Documented By: Admin: 10/29/24 13:10 Dose: 200 mls/hr Documented By: Sodium Chloride (Normal Saline 0.9%) 1,000 mls @ 100 mls/hr IV CONT [facility] Last Admin: 10/29/24 15:24 Dose: 100 mls/hr Documented By: RAE Acetaminophen (Ofirmev) 1,000 mg in 100 mls @ 400 mls/hr IV NOW ONE Stop: 10/29/24 17:16 Last Infusion: 10/29/24 17:22 Dose: Infused Documented By: Admin: 10/29/24 17:02 Dose: 400 mls/hr Documented By: TOMAS Naloxone HCl (Naloxone 0.4 Mg/Ml Vial) 0.2 mg IV Q2MIN PRN PRN Reason: Opiate Reversal Naloxone HCl (Naloxone 0.4 Mg/Ml Vial) 0.2 mg IV Q2MIN PRN PRN Reason: Opiate Reversal Ondansetron HCl (Ondansetron 4 Mg/2 Ml Inj) 4 mg IV NOW ONE Stop: 10/29/24 12:06 Last Admin: 10/29/24 12:12 Dose: 4 mg Documented By: Ondansetron HCl (Ondansetron 4 Mg/2 Ml Inj) 4 mg IV Q8HR PRN PRN Reason: Nausea And Vomiting Oxycodone HCl (Oxycodone Ir 5 Mg Tablet) 5 mg PO PACUNOW PRN PRN Reason: Mild or moderate pain Vital Signs Vital signs: Vital Signs - 8 hr 10/29/24 11:21 10/29/24 11:22 10/29/24 11:22 Temperature Pulse Rate 92 H 95 H Respiratory Rate Blood Pressure 180/104 H Pulse Oximetry 97 97 Oxygen Delivery Method 10/29/24 11:23 10/29/24 11:30 10/29/24 11:30 Temperature 98.4 F Pulse Rate 87 92 H Respiratory Rate 22 24 Blood Pressure 180/104 H 184/96 H Pulse Oximetry 98 92 Oxygen Delivery Method Room Air Room Air 10/29/24 12:02 10/29/24 12:03 10/29/24 12:03 Temperature Pulse Rate 98 H 96 H Respiratory Rate 17 Blood Pressure 180/101 H Pulse Oximetry 96 96 Oxygen Delivery Method 10/29/24 12:30 10/29/24 12:30 10/29/24 13:00 Temperature Pulse Rate 97 H 98 H Respiratory Rate 24 21 Blood Pressure 179/93 H Pulse Oximetry 93 92 Oxygen Delivery Method Room Air 10/29/24 13:00 Temperature Pulse Rate Respiratory Rate Blood Pressure 186/89 H Pulse Oximetry Oxygen Delivery Method MDM - Extremity Injury (Lower) Lab Data Attestation: I reviewed the patient's lab results. Lab results narrative: White blood cell count 97987, hemoglobin 15.5, platelets 383602. Basic metabolic panel unremarkable. Liver functions unremarkable. ESR, CRP, procalcitonin not elevated. 10/29/24 11:40 10/29/24 11:40 Labs: Lab Results 10/29/24 Range/Units 11:40 WBC 17.8 H (4.5-11.0) X10^3/uL RBC 5.17 (4.5-5.9) X10^6/uL Hgb 15.5 (13.5-17.5) g/dL Hct 47.1 (41-53) % MCV 91.1 (80-100) fL MCH 30.0 (26-34) PG MCHC 32.9 (30-36) % RDW 13.7 (11.6-14.8) % Plt Count 268 (150-400) X10^3/uL Neut % (Auto) 90.7 H (50-75) % Lymph % (Auto) 4.1 L (25-40) % Peach % (Auto) 4.9 (3-14) % Eos % (Auto) 0.0 L (2-4) % Baso % (Auto) 0.3 (0-2) % Neut # (Auto) 97561 H (7355-4676) /uL Lymph # (Auto) 700 L (3512-9176) /uL Peach # (Auto) 900 (0-900) /uL Eos # (Auto) 0 (0-450) /uL Baso # (Auto) 100 (0-100) /uL ESR 1 (0-15) MM/HR Sodium 134 L (137-145) mmol/L Potassium 3.8 (3.4-5.1) mmol/L Chloride 101 (98-107) mmol/L Carbon Dioxide 27 (22-32) mmol/L BUN 14 (9-20) mg/dL Creatinine 0.81 (0.66-1.25) mg/dL Estimated GFR > 60 (>60) mL/min BUN/Creatinine Ratio 17.3 (6-22) Glucose 121 H (70-100) mg/dL Lactate 1.0 (0.7-2.1) mmol/L Calcium 8.7 (8.4-10.2) mg/dL Total Bilirubin 0.6 (0.2-1.3) mg/dL AST 39 (17-59) IU/L ALT 54 H (<50) IU/L Alkaline Phosphatase 83 (38-126) U/L C-Reactive Protein 0.6 (<1.0) mg/dL Total Protein 7.2 (6.3-8.2) g/dL Albumin 4.4 (3.5-5.0) g/dL Globulin 2.8 (1.7-4.1) g/dL Albumin/Globulin Ratio 1.6 (1.0-2.8) Procalcitonin 0.054 (<0.5) ng/mL Imaging Data CT lower extremity knee region IV contrast: Radiologist's Impression: [address] [address] [address] Scan Report Signed Patient: Kosta Fournier MR#: [id number] : 1970 Acct:[id number] Age/Sex: 54 / M Date of Service: 10/29/24 Loc: ED Accession Number: [id number] Procedure: CT LE RT w con Ordering Provider: Luis A Griffin MD PROCEDURE: CT LE RT W CON INDICATIONS: right knee swelling, ?effusion, ?bursitis, ?drainable fluid TECHNIQUE: After the administration of intravenous contrast, 3 mm axial sections acquired of the right knee, with coronal and sagittal reformats. COMPARISON: None. FINDINGS: Image quality: Excellent. Bones: Right knee alignment is anatomic. No acute fracture or dislocation. Mild tricompartmental osteoarthritis is seen with joint space narrowing, subchondral sclerosis and tiny marginal osteophyte formation most notably in medial femoral tibial compartment. There is no suspicious intraosseous lesion. No significant patellar subluxation. No cortical erosion or abnormal periosteal reaction is seen. Soft tissues: Small to moderate suprapatellar joint effusion is seen, no calcified intra-articular loose bodies. Marked soft tissue swelling and edema along anterior and lateral aspect of right knee is seen. Moderate amount of fluid is seen anterior to the patella suggestive of prepatellar bursal fluid and bursitis. No discrete drainable abscess collection is identified. There is no quadriceps or patellar tendon rupture. anterior and posterior cruciate ligaments are within normal limits. IMPRESSION: 1. Marked soft tissue swelling and edema along anterior and lateral aspect of right knee with suggestion of fluid distending prepatellar bursa concerning for bursitis. No discrete drainable abscess collection. No subcutaneous emphysema. 2. Small to moderate suprapatellar joint effusion, no gross calcified intra-articular loose bodies. 3. Mild tricompartmental osteoarthritis more notably in medial femoral tibial compartment. No fracture or dislocation. No CT evidence of osteomyelitis. Dictated by: Beau Daniels M.D. on 10/29/2024 at 12:26 Approved by: Beau Daniels M.D. on 10/29/2024 at 12:30 [facility] Narrative Medical decision making narrative: 54-year-old male transferred by air from [facility] ED, concern for septic right knee, had erythema and pain inability to bear weight and move the knee per provider, who had contacted Dr. Beltran of Orthopedic surgery. Ortho called here, stating there has not been any workup at the sending facility, requests serum studies and call back. On my examination the erythema and swelling seems prepatellar, could not palpate any obvious intra-articular joint large effusion. We will hold on any attempted tap at this point. Case discussed with Dr. Beltran orthopedic surgery, consider CT knee IV contrast imaging to look for any drainable fluid collection prepatellar and also to evaluate for any significant intra-articular effusion that does not seem to be clinically obvious. CT right lower extremity with IV contrast. Impressions: ?Marked soft tissue swelling and edema along the anterior and lateral aspect of the right knee with suggestive of fluid distending prepatellar bursa concerning for bursitis. No discrete drainable abscess collection. No subcutaneous emphysema. Small to moderate suprapatellar joint effusion, no gross calcified intra-articular loose bodies. Mild tricompartmental osteoarthritis more notably in the medial femorotibial compartment. No fracture or dislocation. No CT evidence of osteomyelitis.? See radiology report IV Vancomycin, IV Ceftriaxone. Case discussed with Dr. Beltran orthopedic surgery, results of impressions read to him, we will hold off on needle aspiration procedure at this time. Agrees with empiric antibiotic regimen IV vancomycin and IV ceftriaxone. Patient can not bear weight and has infection, we will consult, admit to hospitalist advised. We will contact hospitalist. [phone], Dr. Severino orthopedic surgery here in the department is seeing the patient, requests admission to the hospitalist service, we will go to the operating room for drainage of infected prepatellar bursitis [facility] reports Dr. Ac accepts patient for admission to inpatient Critical Care Time Critical Care Time Total Critical Care Time: 35 Attestation: The high probability of a clinically significant, sudden or life threatening deterioration of the [orthopedic, musculoskeletal] system(s) required my full and direct attention, intervention and personal management. The aggregate critical care time was [35] minutes. This time is in addition to time spent performing reported procedures but includes the following: [x] Data Review and interpretation [x] Patient assessment and monitoring of vital signs [x] Documentation [x] Medication orders and management Discharge Plan Departure Patient Disposition: Admitted As Inpatient Clinical Impression: Septic prepatellar bursitis of right knee Admit Date/Time: 10/29/24 14:03 Admit Provider: Armando Ac
--- NOTE | 2024-10-29 11:39 | DI.CT.S_ITS ---
PROCEDURE: CT LE RT W CON INDICATIONS: right knee swelling, ?effusion, ?bursitis, ?drainable fluid TECHNIQUE: After the administration of intravenous contrast, 3 mm axial sections acquired of the right knee, with coronal and sagittal reformats. COMPARISON: None. FINDINGS: Image quality: Excellent. Bones: Right knee alignment is anatomic. No acute fracture or dislocation. Mild tricompartmental osteoarthritis is seen with joint space narrowing, subchondral sclerosis and tiny marginal osteophyte formation most notably in medial femoral tibial compartment. There is no suspicious intraosseous lesion. No significant patellar subluxation. No cortical erosion or abnormal periosteal reaction is seen. Soft tissues: Small to moderate suprapatellar joint effusion is seen, no calcified intra-articular loose bodies. Marked soft tissue swelling and edema along anterior and lateral aspect of right knee is seen. Moderate amount of fluid is seen anterior to the patella suggestive of prepatellar bursal fluid and bursitis. No discrete drainable abscess collection is identified. There is no quadriceps or patellar tendon rupture. anterior and posterior cruciate ligaments are within normal limits. IMPRESSION: 1. Marked soft tissue swelling and edema along anterior and lateral aspect of right knee with suggestion of fluid distending prepatellar bursa concerning for bursitis. No discrete drainable abscess collection. No subcutaneous emphysema. 2. Small to moderate suprapatellar joint effusion, no gross calcified intra-articular loose bodies. 3. Mild tricompartmental osteoarthritis more notably in medial femoral tibial compartment. No fracture or dislocation. No CT evidence of osteomyelitis. Dictated by: Beau Daniels M.D. on 10/29/2024 at 12:26 Approved by: Beau Daniels M.D. on 10/29/2024 at 12:30
[2024-10-29 11:50] LABS: Add Manual Diff / Slide Review NO; Basophils Absolute Auto 100 /uL (0-100); Basophils Percent Auto 0.3 % (0-2); Eosinophils Absolute Auto 0 /uL (0-450); Hematocrit 47.1 % (41-53); Hemoglobin 15.5 g/dL (13.5-17.5); Lymphocytes Absolute Auto 700 /uL (1100-4500); Lymphocytes Percent Auto 4.1 % (25-40); Mean Corpuscular HGB Conc 32.9 % (30-36); Mean Corpuscular Volume 91.1 fL (80-100); Monocytes Absolute Auto 900 /uL (0-900); Monocytes Percent Auto 4.9 % (3-14); Neutrophils Absolute Auto 16200 /uL (1500-7000); Neutrophils Percent Auto 90.7 % (50-75); Platelet Count 268 X10^3/uL (150-400); Red Blood Cell Count 5.17 X10^6/uL (4.5-5.9); Red Cell Distribution Width 13.7 % (11.6-14.8); White Blood Cell Count 17.8 X10^3/uL (4.5-11.0)
--- NOTE | 2024-10-29 12:06 | PC.NURSE ---
Pt reports pain to right knee. Verbal order received from Dr Griffin for 0.5 mg IV hydromorphone and 4 mg IV Zofran.
[2024-10-29 12:08] LABS: Alanine Aminotransferase 54 IU/L (<50); Albumin 4.4 g/dL (3.5-5.0); Albumin Globulin Ratio 1.6 (1.0-2.8); Alkaline Phosphatase 83 U/L (38-126); Aspartate Aminotransferase 39 IU/L (17-59); BUN Creatinine Ratio 17.3 (6-22); Bilirubin Total 0.6 mg/dL (0.2-1.3); Blood Urea Nitrogen 14 mg/dL (9-20); C-Reactive Protein Quant 0.6 mg/dL (<1.0); Calcium 8.7 mg/dL (8.4-10.2); Carbon Dioxide 27 mmol/L (22-32); Chloride 101 mmol/L (98-107); Estimated Glomerular Filt Rate > 60 mL/min (>60); Globulin 2.8 g/dL (1.7-4.1); Glucose 121 mg/dL (70-100); HEMOLYSIS 18 (0-50); Potassium 3.8 mmol/L (3.4-5.1); Sodium 134 mmol/L (137-145); Total Protein 7.2 g/dL (6.3-8.2)
[2024-10-29] MEDS: HYDROMORPHONE 0.5 MG INJ IV (12:12)
[2024-10-29] MEDS: ONDANSETRON 4 MG/2 ML INJ IV (12:12)
[2024-10-29 12:14] LABS: Erythrocyte Sedimentation Rate 1 MM/HR (0-15)
[2024-10-29 12:21] LABS: Procalcitonin 0.054 ng/mL (<0.5)
[2024-10-29] MEDS: cefTRIAXone 2,000 MG in SODIUM CHLORIDE 0.9% 100 ML 200 MG IV (13:10)
[2024-10-29] MEDS: VANCOMYCIN 2,000 MG in SODIUM CHLORIDE 0.9% 500 ML 250 MG IV (13:36)
[2024-10-29] MEDS: HYDROMORPHONE 0.5 MG INJ 1 MG IV (15:18)
[2024-10-29] MEDS: SODIUM CHLORIDE 0.9% 1,000 ML 100 ML IV (15:24)
--- NOTE | 2024-10-29 15:54 | PC.NURSE ---
Patient arrived from the Emergency Department to room 223 at 1515 via stretcher. Patient is A&Ox4, able to make needs known. Patient arrived in 06/27 severe R knee pain, 1mg of Dilaudid administered to R over 60 seconds. Patient left to surgery at 1545-- VSS: 151/92, 98% O2 on RA, 102 HR, 22 RR, 99.2F.
--- NOTE | 2024-10-29 16:02 | PM.HP.1 ---
History of Present Illness History of Present Illness Date Patient Seen: 10/29/24 Time Patient Seen: 15:00 Chief complaint: Knee septic Narrative: 54 M with no known PMH was airlifted from [place] for possible infected R knee bursitis. Patient had received IV dilaudid on my exam, was lethargic, history provided by spouse. This morning he developed severe right knee pain after dealing with a blister over his knee for approximately the past 2 weeks. His knee was very inflamed and red and he immediately presented to the [place] Emergency room. Spouse reports that he could not move his right knee without significant pain and had markedly reduced range of motion. In the emergency room, the patient was mildly tachycardic, mildly hypertensive but the remainder of his vital signs were unremarkable. Laboratory evaluation showed a leukocytosis with WBC of 17.8, although his ESR was 1 and CRP was unremarkable at 0.6. Procalcitonin was unremarkable at 0.054. He was given ceftriaxone and vancomycin, he had CT imaging which showed a likely prepatellar bursitis as opposed to a knee joint. Orthopedic surgery consulted in the emergency room and recommended an incision and drainage for which she is undergoing this afternoon. Medicine team will admit. [facility] Medical History Patient denies medical problems Surgical History History of carpal tunnel surgery of right wrist History of carpal tunnel surgery of left wrist History of tonsillectomy Family History Mother Cancer Father Diabetes mellitus Social History household members: spouse, significant other and children Smoking Status: Current every day smoker alcohol intake: current Meds Home Medications and Allergies Allergies Allergy/AdvReac Type Severity Reaction Status Date / Time No Known Drug Allergies Allergy Verified 11/23/21 09:48 Review of Systems Review of Systems Narrative: All other systems reviewed with the patient and are negative unless otherwise stated. Exam Vital Signs (past 8 hours): - 10/29/24 11:21 10/29/24 11:22 10/29/24 11:22 Temperature Pulse Rate 92 H 95 H Respiratory Rate Blood Pressure 180/104 H Pulse Oximetry 97 97 Oxygen Delivery Method Oxygen Flow Rate 10/29/24 11:23 10/29/24 11:30 10/29/24 11:30 Temperature 98.4 F Pulse Rate 87 92 H Respiratory Rate 22 24 Blood Pressure 180/104 H 184/96 H Pulse Oximetry 98 92 Oxygen Delivery Method Room Air Room Air Oxygen Flow Rate 10/29/24 12:02 10/29/24 12:03 10/29/24 12:03 Temperature Pulse Rate 98 H 96 H Respiratory Rate 17 Blood Pressure 180/101 H Pulse Oximetry 96 96 Oxygen Delivery Method Oxygen Flow Rate 10/29/24 12:30 10/29/24 12:30 10/29/24 13:00 Temperature Pulse Rate 97 H 98 H Respiratory Rate 24 21 Blood Pressure 179/93 H Pulse Oximetry 93 92 Oxygen Delivery Method Room Air Oxygen Flow Rate 10/29/24 13:00 10/29/24 13:30 10/29/24 13:30 Temperature Pulse Rate 100 H Respiratory Rate 13 Blood Pressure 186/89 H 171/91 H Pulse Oximetry 86 L Oxygen Delivery Method Oxygen Flow Rate 10/29/24 14:00 10/29/24 14:00 10/29/24 14:04 Temperature Pulse Rate 94 H Respiratory Rate 23 Blood Pressure 168/86 H Pulse Oximetry 94 95 Oxygen Delivery Method Oxygen Flow Rate 0 10/29/24 14:30 10/29/24 14:30 10/29/24 15:15 Temperature 99.2 F Pulse Rate 93 H 102 H Respiratory Rate 22 24 22 Blood Pressure 166/89 H 151/92 H Pulse Oximetry 95 98 98 Oxygen Delivery Method Room Air Oxygen Flow Rate 0 Oxygen Delivery Method Room Air Oxygen Flow Rate 0 Narrative Exam Narrative: General:? Patient is well developed and well nourished, lethargic, ill appearing, uncomfortable. HEENT:? Normocephalic, atraumatic, extraocular muscles intact, oral pharynx is clear and mucous membranes are dry.. Lungs:? CTA b/l no wheezing rhonchi or rales. Cardio:?RRR no m/r/g. Abdomen: S NT ND. Musculoskeletal:? Muscle strength and tone are equal within normal limits. R knee with 3x3 cm erythema and warmth over the patellar area with central eschar. No active purulence. Extremities: No edema. Objective Labs 10/29/24 11:40 10/29/24 11:40 Labs: Laboratory Results - last 24 hr 10/29/24 11:40 WBC 17.8 H RBC 5.17 Hgb 15.5 Hct 47.1 MCV 91.1 MCH 30.0 MCHC 32.9 RDW 13.7 Plt Count 268 Neut % (Auto) 90.7 H Lymph % (Auto) 4.1 L [place] % (Auto) 4.9 Eos % (Auto) 0.0 L Baso % (Auto) 0.3 Neut # (Auto) 61524 H Lymph # (Auto) 700 L [place] # (Auto) 900 Eos # (Auto) 0 Baso # (Auto) 100 ESR 1 Sodium 134 L Potassium 3.8 Chloride 101 Carbon Dioxide 27 BUN 14 Creatinine 0.81 Estimated GFR > 60 BUN/Creatinine Ratio 17.3 Glucose 121 H Lactate 1.0 Calcium 8.7 Total Bilirubin 0.6 AST 39 ALT 54 H Alkaline Phosphatase 83 C-Reactive Protein 0.6 Total Protein 7.2 Albumin 4.4 Globulin 2.8 Albumin/Globulin Ratio 1.6 Procalcitonin 0.054 Assessment & Plan Assessment & Plan narrative: 1. Bacterial Prepatellar bursitis, rule out R knee septic joint, rule out sepsis - Orthopedic surgery recommends I&D in the OR, going later this afternoon, likely pre-patellar bursitis but rule out infected R knee - continue ceftriaxone and vancomycin. - no blood cultures obtained from the ER, ordered now - follow up OR cultures - Elevated WBC, no other end organ damage notable on labs, sepsis likely ruled out with SOFA <2. - NPO now, IV fluids Code: Full, surrogate is patient's spouse DVT: SCDs I have utilized all available immediate resources to obtain, update, or review the patient's current medications. Dispo: patient admitted under inpatient status. Likely to discharge home, may need PT/OT evaluations depending on mobility after surgery. Additional history obtained via discussions with the ER provider. These discussions contributed to the creation of the above assessment and plan. I have reviewed patient's presenting documentation, labs, and imaging personally. Time-Based Coding :: [TOTAL MINUTES] spent with patient and on the chart (including review of chart, obtaining history, exam, reviewing outside data, placing orders, documenting exam and treatment plan, and counseling patient) on [DATE]. Quality VTE Deep Vein Thrombosis/Pulmonary Embolism Present on Admission: No
--- NOTE | 2024-10-29 16:16 | PM.HP.1 ---
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 He notes that it was getting better and it was resolving and then yesterday he noted significant worsening pain. It progressively worsened and he went to the emergency room at [facility]. He was noted to have an abrasion with hypertrophied skin on the anterior aspect of his knee erythema and significant swelling in his prepatellar bursa. He had significant restricted range motion and there was concern for possible septic knee. He also had an elevated white count. He was transferred to [facility] Emergency room for further evaluation. [facility] Medical History Patient denies medical problems Surgical History History of carpal tunnel surgery of right wrist History of carpal tunnel surgery of left wrist History of tonsillectomy Family History Mother Cancer Father Diabetes mellitus Social History household members: spouse, significant other and children Smoking Status: Current every day smoker alcohol intake: current Meds Home Medications and Allergies Allergies Allergy/AdvReac Type Severity Reaction Status Date / Time No Known Drug Allergies Allergy Verified 11/23/21 09:48 Review of Systems Review of Systems Narrative: No recent fever cough or cold. He has chronic problem with his left knee. He has some thickening of the left knee prepatellar bursa. His left knee is not currently symptomatic. He did have fevers at home. And significant pain and difficulty with weight-bearing on the right leg. Exam Vital Signs (past 8 hours): - 10/29/24 11:21 10/29/24 11:22 10/29/24 11:22 Temperature Pulse Rate 92 H 95 H Respiratory Rate Blood Pressure 180/104 H Pulse Oximetry 97 97 Oxygen Delivery Method Oxygen Flow Rate 10/29/24 11:23 10/29/24 11:30 10/29/24 11:30 Temperature 98.4 F Pulse Rate 87 92 H Respiratory Rate 22 24 Blood Pressure 180/104 H 184/96 H Pulse Oximetry 98 92 Oxygen Delivery Method Room Air Room Air Oxygen Flow Rate 10/29/24 12:02 10/29/24 12:03 10/29/24 12:03 Temperature Pulse Rate 98 H 96 H Respiratory Rate 17 Blood Pressure 180/101 H Pulse Oximetry 96 96 Oxygen Delivery Method Oxygen Flow Rate 10/29/24 12:30 10/29/24 12:30 10/29/24 13:00 Temperature Pulse Rate 97 H 98 H Respiratory Rate 24 21 Blood Pressure 179/93 H Pulse Oximetry 93 92 Oxygen Delivery Method Room Air Oxygen Flow Rate 10/29/24 13:00 10/29/24 13:30 10/29/24 13:30 Temperature Pulse Rate 100 H Respiratory Rate 13 Blood Pressure 186/89 H 171/91 H Pulse Oximetry 86 L Oxygen Delivery Method Oxygen Flow Rate 10/29/24 14:00 10/29/24 14:00 10/29/24 14:04 Temperature Pulse Rate 94 H Respiratory Rate 23 Blood Pressure 168/86 H Pulse Oximetry 94 95 Oxygen Delivery Method Oxygen Flow Rate 0 10/29/24 14:30 10/29/24 14:30 10/29/24 15:15 Temperature 99.2 F Pulse Rate 93 H 102 H Respiratory Rate 22 24 22 Blood Pressure 166/89 H 151/92 H Pulse Oximetry 95 98 98 Oxygen Delivery Method Room Air Oxygen Flow Rate 0 10/29/24 16:04 Temperature 99.3 F Pulse Rate 102 H Respiratory Rate 20 Blood Pressure 159/87 H Pulse Oximetry 91 Oxygen Delivery Method Room Air Oxygen Flow Rate Oxygen Delivery Method Room Air Oxygen Flow Rate 0 Narrative Exam Narrative: HEENT is benign, lungs are clear cor regular rate and rhythm, he appears to be uncomfortable, he has severe pain over the anterior aspect of his right knee and obvious swelling over the prepatellar bursal region, has restricted range motion in the right knee. There is thickened tissue on the anterior aspect of his knee. And an abrasion with a break in the skin over the prepatellar bursal region, there is minimal to no joint effusion. Objective Labs 10/29/24 11:40 10/29/24 11:40 Labs: Laboratory Results - last 24 hr 10/29/24 11:40 WBC 17.8 H RBC 5.17 Hgb 15.5 Hct 47.1 MCV 91.1 MCH 30.0 MCHC 32.9 RDW 13.7 Plt Count 268 Neut % (Auto) 90.7 H Lymph % (Auto) 4.1 L [place] % (Auto) 4.9 Eos % (Auto) 0.0 L Baso % (Auto) 0.3 Neut # (Auto) 95345 H Lymph # (Auto) 700 L [place] # (Auto) 900 Eos # (Auto) 0 Baso # (Auto) 100 ESR 1 Sodium 134 L Potassium 3.8 Chloride 101 Carbon Dioxide 27 BUN 14 Creatinine 0.81 Estimated GFR > 60 BUN/Creatinine Ratio 17.3 Glucose 121 H Lactate 1.0 Calcium 8.7 Total Bilirubin 0.6 AST 39 ALT 54 H Alkaline Phosphatase 83 C-Reactive Protein 0.6 Total Protein 7.2 Albumin 4.4 Globulin 2.8 Albumin/Globulin Ratio 1.[address] scan is remarkable for swelling in the prepatellar bursa, no evidence of fracture minimal joint effusion Assessment & Plan Assessment and plan (1) Septic prepatellar bursitis of right knee: Status: Acute (2) Cellulitis: Status: Acute Plan Septic right knee prepatellar bursitis. He has an elevated white count. He has significant pain and obvious swelling in the prepatellar bursa. I do not think he has evidence of a septic knee. I have recommended irrigation and debridement. The plan is that he is going to be admitted for IV antibiotics. We will get culture and sensitivity and Gram stain from the prepatellar bursa and my tentative plan is to leave a drain in. The procedure options risks benefits and complications were discussed with him and his . I discussed his situation with his phone. We will plan for admission to [facility] and antibiotics after surgery. Time-Based Coding :: [TOTAL MINUTES] spent with patient and on the chart (including review of chart, obtaining history, exam, reviewing outside data, placing orders, documenting exam and treatment plan, and counseling patient) on [DATE]. Quality VTE Deep Vein Thrombosis/Pulmonary Embolism Present on Admission: No
--- NOTE | 2024-10-29 16:52 | SUR.OPER ---
Supine on padded OR bed, head on pillow, arms padded and tucked at sides, legs uncrossed, safety belt at waist, tape over blanket over lower left leg right leg draped free leg .
[2024-10-29] MEDS: SODIUM CHLORIDE 0.9% 1,000 ML, GENTAMICIN 80 MG IRR (17:00)
[2024-10-29] MEDS: BUPIVACAINE 0.5% (PF) 30 ML VIAL INJ (17:01)
[2024-10-29] MEDS: ACETAMINOPHEN IV 1,000 MG/100 ML VIAL 400 MG IV (17:02)
[2024-10-29] MEDS: ACETAMINOPHEN 325 MG TABLET 650 MG PO (18:29)
--- NOTE | 2024-10-29 18:40 | P.OP_ITS ---
Operative Date/Time/Diagnoses Date of procedure: 10/29/24 Time of procedure: 16:30 Pre-op diagnosis: Septic right knee prepatellar bursitis Post-op diagnosis: same Procedure & Clinicians Procedure: Irrigation and excisional debridement right knee prepatellar bursitis, bursectomy right knee Same procedure as scheduled: Yes Indications: This is a 54-year-old gentleman with severe worsening right knee pain whose exam was consistent with a right knee septic prepatellar bursitis. He was brought the operating room irrigation and debridement and prepatellar bursectomy. The procedure options risks benefits and complications were discussed in detail. He does have an elevated white count in his clear evidence of an infected prepatellar bursa. Surgeon: Marisabel Severino Click Yes if Unassisted: Yes Anesthesia Type: General Operative Notes Findings: Grossly infected prepatellar bursa with gross pus. Bursectomy without difficulty Closure Type: primary Specimen(s): other (G stain culture and sensitivity and cell count) Estimated Blood Loss (mL): 50 Blood products transfused: none Tourniquet time (min): 18 Procedure in detail: Patient was brought to the operating room. He underwent the induction of a general anesthesia. We initially held the antibiotics as he had already had several doses of antibiotics and we were awaiting cultures. His right lower extremity was prepped and draped in a standard sterile fashion. Tourniquet was elevated to 250 mmHg. Approximally 10 cc of grossly purulent fluid was aspirated from the right knee prepatellar area. It was grossly purulent. A skin incision was made lateral to the midline in order to allow exposure and a bursectomy but to minimize direct contact on the anterior aspect of his patella. He did have skin changes over the anterior aspect of his patella which was hy pertrophied and it appeared to have a break in the skin directly over the anterior aspect of his patella. This did not appear to be full-thickness requiring excision. Skin incision was made dissection was carried out through skin and subcutaneous tissues. There was gross purulent material and marked inflammation and thickening of the prepatellar bursa. An excisional debridement was performed removing subcutaneous tissue sharply and a bursectomy was performed with a combination of knife as well as a cloward rongeur and a Leksell rongeur. Once all of the grossly purulent material in the bursa had been debrided a 3 L bag of normal saline irrigation was used to irrigate the knee. Hemostasis was achieved. The wound was closed with interrupted nylon. A drain was placed in the prepatellar bursal area. The wound was dressed sterilely with antibiotic ointment and Xeroform. Patient tolerated the procedure well. She was transferred to recovery room in satisfactory condition. Complications: none Post-operative Condition: stable Disposition: Acute Care Plan for aftercare: IV antibiotics for 24-48 hours. Check cultures. Follow clinical course. Leave drain in until postop day 2. Likely okay to be discharged home on appropriate oral antibiotics in 48 hours or so. Follow up 10-14 days postoperatively. Weightbearing as tolerated right lower extremity.
[2024-10-29 18:44] LABS: Body Fluid Red Blood Cells 24144 /uL; Body Fluid Tot Nucleated Cells 294796 /uL
[2024-10-29 19:13] LABS: Body Fluid Appearance CLOUDY; Body Fluid Clotted? NO CLOTS PRESENT; Body Fluid Color YELLOW; Lymphocytes Body Fluid 4 %; Neutrophils Body Fluid 96 %
--- NOTE | 2024-10-29 19:54 | PC.NURSE ---
late entry-1515 pt to AC from ED, erythema and edema to R knee. dime sized scab vs lesion to top of patella. knee warm and tender to touch.
[2024-10-29] MEDS: VANCOMYCIN 1,250 MG/250 ML PIGGYBACK 250 MG IV (22:34)
[2024-10-29] MEDS: DOCUSATE 100 MG CAPSULE PO (22:34)
[2024-10-29] MEDS: ASPIRIN EC 81 MG TABLET PO (22:34)
[2024-10-29] MEDS: SENNOSIDES 8.6 MG TABLET 17.2 MG PO (22:34)
[2024-10-29] MEDS: IBUPROFEN 400 MG TABLET PO (22:35)
[2024-10-30 01:00] VITALS: BP 155/88; PULSE 84; RESP 18; TEMP 36.3; O2SAT 96
[2024-10-30 03:00] VITALS: O2SAT 97
[2024-10-30] MEDS: IBUPROFEN 400 MG TABLET PO ×4 (05:36→21:36)
[2024-10-30] MEDS: ACETAMINOPHEN 325 MG TABLET 650 MG PO ×3 (05:37→18:07)
[2024-10-30] MEDS: VANCOMYCIN 1,250 MG/250 ML PIGGYBACK 250 MG IV ×2 (05:37→13:58)
[2024-10-30 06:42] LABS: Add Manual Diff / Slide Review NO; Basophils Absolute Auto 100 /uL (0-100); Basophils Percent Auto 0.4 % (0-2); Eosinophils Absolute Auto 0 /uL (0-450); Eosinophils Percent Auto 0.1 % (2-4); Hematocrit 43.5 % (41-53); Hemoglobin 14.4 g/dL (13.5-17.5); Lymphocytes Absolute Auto 1200 /uL (1100-4500); Mean Corpuscular Hemoglobin 30.1 PG (26-34); Mean Corpuscular Volume 91.2 fL (80-100); Monocytes Absolute Auto 1000 /uL (0-900); Neutrophils Absolute Auto 18500 /uL (1500-7000); Neutrophils Percent Auto 88.5 % (50-75); Platelet Count 270 X10^3/uL (150-400); Red Blood Cell Count 4.77 X10^6/uL (4.5-5.9); Red Cell Distribution Width 13.3 % (11.6-14.8); White Blood Cell Count 20.8 X10^3/uL (4.5-11.0)
[2024-10-30 06:58] LABS: BUN Creatinine Ratio 16.1 (6-22); Blood Urea Nitrogen 14 mg/dL (9-20); Calcium 8.8 mg/dL (8.4-10.2); Carbon Dioxide 27 mmol/L (22-32); Chloride 101 mmol/L (98-107); Estimated Glomerular Filt Rate > 60 mL/min (>60); Glucose 131 mg/dL (70-100); HEMOLYSIS < 15 (0-50); Magnesium 2.4 mg/dL (1.6-2.3); Potassium 4.2 mmol/L (3.4-5.1); Sodium 133 mmol/L (137-145)
--- NOTE | 2024-10-30 07:59 | PM.PN.1 ---
Subjective Subjective Interval history: S: His pain is much improved. He has a wrapped knee with a drain in place. He lives in [place], but wants leave the hospital today. He would stay overnight [place] at a hotel with his . Exam Vital Signs (past 8 hours): - 10/30/24 01:00 10/30/24 03:00 Temperature 97.4 F L Pulse Rate 84 Respiratory Rate 18 Blood Pressure 155/88 H Pulse Oximetry 96 97 Oxygen Delivery Method Room Air Oxygen Flow Rate 0 Oxygen Delivery Method Room Air Oxygen Flow Rate 0 Narrative Exam Narrative: NAD, alert and oriented. Fluent speech. Lungs are clear, normal rate and effort. Heart is regular, no murmur gallop or rub. Abdomen is soft, non distended. Extremities are free of edema. Right knee is wrapped, with blood in his surgical drain. Objective Labs 10/30/24 05:58 10/30/24 05:58 Labs: Laboratory Results - last 24 hr 10/29/24 10/29/24 10/30/24 11:40 17:10 05:58 WBC 17.8 H 20.8 H RBC 5.17 4.77 Hgb 15.5 14.4 Hct 47.1 43.5 MCV 91.1 91.2 MCH 30.0 30.1 MCHC 32.9 33.0 RDW 13.7 13.3 Plt Count 268 270 Neut % (Auto) 90.7 H 88.5 H Lymph % (Auto) 4.1 L 6.0 L [place] % (Auto) 4.9 5.0 Eos % (Auto) 0.0 L 0.1 L Baso % (Auto) 0.3 0.4 Neut # (Auto) 35439 H 99913 H Lymph # (Auto) 700 L 1200 [place] # (Auto) 900 1000 H Eos # (Auto) 0 0 Baso # (Auto) 100 100 ESR 1 Sodium 134 L 133 L Potassium 3.8 4.2 Chloride 101 101 Carbon Dioxide 27 27 BUN 14 14 Creatinine 0.81 0.87 Estimated GFR > 60 > 60 BUN/Creatinine Ratio 17.3 16.1 Glucose 121 H 131 H Lactate 1.0 Calcium 8.7 8.8 Magnesium 2.4 H Total Bilirubin 0.6 AST 39 ALT 54 H Alkaline Phosphatase 83 C-Reactive Protein 0.6 Total Protein 7.2 Albumin 4.4 Globulin 2.8 Albumin/Globulin Ratio 1.6 Procalcitonin 0.054 Fluid Color Yellow Fluid Appearance Cloudy [place] 398[address] Fld Tot Nucleated Cell 456373 Fluid Neutrophils % 96 Fluid Lymphocytes % 4 Body Fluid Clot No clots present [facility] Medical History Patient denies medical problems Surgical History History of carpal tunnel surgery of right wrist History of carpal tunnel surgery of left wrist History of tonsillectomy Family History Mother Cancer Father Diabetes mellitus Social History household members: spouse, significant other and children Smoking Status: Current every day smoker alcohol intake: current Assessment & Plan Assessment & Plan narrative: 1. Bacterial Prepatellar bursitis, rule out R knee septic joint, rule out sepsis - Orthopedic surgery recommends I&D in the OR, going later this afternoon, likely pre-patellar bursitis but rule out infected R knee - continue ceftriaxone and vancomycin. PLAN: Follow cultures and D/W Ortho. Code: Full, surrogate is patient's spouse DVT: SCDs Time-Based Coding :: [TOTAL MINUTES] spent with patient and on the chart (including review of chart, obtaining history, exam, reviewing outside data, placing orders, documenting exam and treatment plan, and counseling patient) on [DATE]. Quality VTE Deep Vein Thrombosis/Pulmonary Embolism Present on Admission: No
[2024-10-30 08:00] VITALS: BP 128/80; PULSE 81; RESP 16; TEMP 36.6; O2SAT 98
[2024-10-30] MEDS: ASPIRIN EC 81 MG TABLET PO ×2 (09:53→21:37)
--- NOTE | 2024-10-30 10:35 | PT.IIE ---
Current Diagnoses Cellulitis, unspecified (10/29/24) Other infective bursitis, right knee (10/29/24) Surgery Performed Operation Date: 10/29/24 16:45 Actual Procedures p Incision and Drainage Knee(Right) - Marisabel Severino MD Surgical History (Last Reviewed 10/30/24 @ 07:59 by Elton Hannah MD) History of carpal tunnel surgery of left wrist History of carpal tunnel surgery of right wrist History of tonsillectomy Medical History (Last Reviewed 10/30/24 @ 07:59 by Elton Hannah MD) Patient denies medical problems Physical Therapy Inpatient Evaluation/Re-Eval M1 PT/OT-IP Prior Functional Status Start: 10/30/24 13:21 Freq: NEEDED Status: Active Protocol: Document 10/30/24 10:35 AB (Rec: 10/30/24 13:32 AB [id number]) Medical Review Prior Functional Status Medical History Reviewed Yes Communication able to make needs known Mobility and Gait pt was independent with all mobilities and ambulation without AD Social History Household Members spouse,children Number of Floors (Floors) Two Floors Number of Stairs To Enter/Railing? 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 PT-IP Current Condition Start: 10/30/24 13:21 Freq: NEEDED Status: Active Protocol: Document 10/30/24 10:35 AB (Rec: 10/30/24 13:32 AB [id number]) Physical Therapy Current Condition Current Condition Evaluation Date 10/30/24 Treatment Diagnosis R knee sepsis s/p I&D & bursectomy; difficulty in walking Onset Date 10/29/24 M3 PT-IP Subjective Start: 10/30/24 13:21 Freq: NEEDED Status: Active Protocol: Document 10/30/24 10:35 AB (Rec: 10/30/24 13:32 AB [id number]) Subjective Physical Therapy Visit Type Type Initial Evaluation Visit Start Time 10:35 Visit Stop Time 11:05 Number of NOVELTY TWISTER OPERATOR Visits 0 Physical Therapy Visit Comments Patient Comments agreeable to do PT Therapy Pain Assessment Pain When Pain Assessed During Mobility Pain Present Pain Present Pain Reported Location Right Knee Scale Used slight pain per pt Pain Management Techniques Apply Cold,Distraction, Modification of Treatment,Re- positioning,Timing of Activity with Medications M4 PT-IP Mobility and Gait Start: 10/30/24 13:21 Freq: NEEDED Status: Active Protocol: Document 10/30/24 10:35 AB (Rec: 10/30/24 13:32 AB [id number]) PT-Bed Mobility Assessment Supine to Sit Supine to Sit Independent PT-Transfer Assessment Sit to and From Stand Sit to and from Stand Independent,Use of Upper Extremities Equipment Transfer Assistive Device None,Front Wheeled Walker Orthotic/Prosthetic Devices or Brace: No Transfers Transfer Destination Chair Transfer Technique ambulated Transfer Ability Level of Assist Standby Assistance,1 Person Assistance,Use of Upper Extremities Comments Mobility Comments pt in bed and agreed to do PT. obtained PLOF and home set up . completed supine to sit I. able to sit on EOB SBA. sit to stand I and ambulated in room using FWW mod I. Assessed ambulation without AD and completed in room SBA. pt agreed to do stairs and ambulation out in the hallway ~ 250 ft without AD SBA for safety. presents with antalgic gait but without LOB. pt completed up/down steps using R rail ascending x 2 sets SBA. pt ambulated back to his room SBA and sat on chair. positioned pt on chair. call light and table placed within reach. educated pt on gentle ROM on R knee and safety. pt understood. No further PT needs at this time. Pt agreed. informed nurse Gait Assessment Gait Gait Assistance Required: Standby Assistance Distance (Feet) 250 Able to Maintain Weight Bearing Status Yes During Gait Assistive Devices Assistive Device None,Gait Belt,Front Wheeled Walker Orthotic/Prosthetic Devices or Brace: No Gait Deviations General Gait Pattern Antalgic Factors Limiting Gait Function Factors Limiting Gait Function Decreased Activity Tolerance, Decreased Strength,Pain,Poor Balance Stair Climbing Assessment Evaluation Level of Assist On Stairs Standby Assistance Devices Stair Climbing Assistive Devices Right Railing Technique/Endurance Stair Climbing Direction Ascend and Descend Stair Climbing Technique Step to Step Number of Steps Climbed 3 Query Text: Stair Climbing Set # Repetitions (reps) 2 PT-Balance Assessment Sitting Balance and Reactions Static Sitting Balance Ability Normal Dynamic Sitting Balance Ability Normal Standing Balance and Reactions Static Standing Balance Ability Good Dynamic Standing Balance Ability Good Device Used without AD M5 PT-IP Objective Assessments Start: 10/30/24 13:21 Freq: NEEDED Status: Active Protocol: Document 10/30/24 10:35 AB (Rec: 10/30/24 13:32 AB [id number]) Orientation Orientation/Cognition Level of Alertness Alert Orientation Name,Age,Birthday,Month,Date, Year,Day of Week,Place, Situation Language Function Ability No Deficits Noted Safety Awareness Understands Safety Issues Memory Description No Deficits Noted Gross Range of Motion Lower Extremity ROM Assessment Right Impaired Impairments R knee tightness with movement Strength Lower Extremity Strength Assessment Left Impaired Knee 4-/5 Muscle Tone Muscle Tone WNL Yes M6 PT-IP Treatment Start: 10/30/24 13:21 Freq: NEEDED Status: Active Protocol: Document 10/30/24 10:35 AB (Rec: 10/30/24 13:32 AB [id number]) Physical Therapy Treatment Education Education Provided Safety M7 PT-IP Assessment and Plan Start: 10/30/24 13:21 Freq: NEEDED Status: Active Protocol: Document 10/30/24 10:35 AB (Rec: 10/30/24 13:32 AB [id number]) PT Summary Assessment and Plan Potential Rehabilitation Potential Good Status of Condition at Evaluation Stable Summary Impairments ROM,Strength,Balance,Transfers ,Gait,Activity Tolerance Assessment Summary pt is a 54 y/o M who is admitted for R knee sepsis and underwent I&D and bursectomy POD 1. pt requiring SBA for ambulation without AD for safety. No LOB. pt plans to go home and will have his family assist him at home if needed. No further PT intervention indicated. Frequency of Treatment Frequency Of Treatment Once a Day Treatment Plan Physical Therapy Treatment Plan Bed Mobility Training,Transfer Training,Gait Training, Therapeutic Exercise,Balance Retraining,Post Op Education, Discharge Planning,Hot or Cold Pack,Neuromuscular Re-ed, Coordination Retraining,Manual Therapy Weight Bearing Status Weight Bearing Status Weight Bear as Tolerated Allowed Weight Bearing Amount (enter % RLE WBAT or #) (%) Recommendations To Nursing Amount of Assist Needed Standby Assistance Discharge Recommendations PT Discharge Recommendations Home with Assistance, Outpatient PT Transportation Needs at Discharge Private Vehicle
--- NOTE | 2024-10-30 11:29 | P.PN_ITS ---
Subjective Subjective Date Patient Seen: 10/30/24 Time Patient Seen: 11:31 Interval history: Patient's pain is controlled with oral medication. ?Pain is localized to surgical site. Drain is active. ?He is working in physical therapy. Patient declines any new numbness or tingling at the surgical extremity. ?Patient denies any shortness of breath, dizziness, light-headedness, nausea, vomiting, fever or chills. Exam Vital Signs (past 8 hours): - 10/30/24 08:00 Temperature 98 F Pulse Rate 81 Respiratory Rate 16 Blood Pressure 128/80 Pulse Oximetry 98 Oxygen Flow Rate 0 Oxygen Delivery Method Room Air Oxygen Flow Rate 0 Narrative Exam Narrative: 5/5 strength in hip flexors, quadriceps, hamstrings, DF, PF, EHL bilaterally. Sensation to light touch intact throughout BLE. Calves soft, compressible, nontender. Dressing placed intraoperatively CDI. Drain present and functioning. Minimal output. Resp Effort & Inspection: normal respiratory effort and able to speak in complete sentences Objective Labs 10/30/24 05:58 10/30/24 05:58 Labs: Laboratory Results - last 24 hr 10/29/24 10/29/24 10/30/24 11:40 17:10 05:58 WBC 17.8 H 20.8 H RBC 5.17 4.77 Hgb 15.5 14.4 Hct 47.1 43.5 MCV 91.1 91.2 MCH 30.0 30.1 MCHC 32.9 33.0 RDW 13.7 13.3 Plt Count 268 270 Neut % (Auto) 90.7 H 88.5 H Lymph % (Auto) 4.1 L 6.0 L [place] % (Auto) 4.9 5.0 Eos % (Auto) 0.0 L 0.1 L Baso % (Auto) 0.3 0.4 Neut # (Auto) 84973 H 69378 H Lymph # (Auto) 700 L 1200 Coffee # (Auto) 900 1000 H Eos # (Auto) 0 0 Baso # (Auto) 100 100 ESR 1 Sodium 134 L 133 L Potassium 3.8 4.2 Chloride 101 101 Carbon Dioxide 27 27 BUN 14 14 Creatinine 0.81 0.87 Estimated GFR > 60 > 60 BUN/Creatinine Ratio 17.3 16.1 Glucose 121 H 131 H Lactate 1.0 Calcium 8.7 8.8 Magnesium 2.4 H Total Bilirubin 0.6 AST 39 ALT 54 H Alkaline Phosphatase 83 C-Reactive Protein 0.6 Total Protein 7.2 Albumin 4.4 Globulin 2.8 Albumin/Globulin Ratio 1.6 Procalcitonin 0.054 Fluid Color Yellow Fluid Appearance [place] [address] Fld Tot Nucleated Cell [id number] Fluid Neutrophils % 96 Fluid Lymphocytes % 4 Body Fluid Clot No clots present [facility] Medical History Patient denies medical problems Surgical History History of carpal tunnel surgery of right wrist History of carpal tunnel surgery of left wrist History of tonsillectomy Family History Mother Cancer Father Diabetes mellitus Social History household members: spouse and children Smoking Status: Current every day smoker alcohol intake: current Assessment & Plan Post-op Postoperative Procedures: Procedures Operation Date: 10/29/24 16:45 Actual Procedure Side Surgeon p Incision and Drainage Knee Right Marisabel A MD [place] Postoperative day: 1 Postoperative status: doing well Postoperative plan narrative: Streptococcus group C on culture sample. Sensitivities pending IV antibiotics for 24-48 hours. Leave drain in until postop day 2. Likely okay to be discharged home on appropriate oral antibiotics in 48 hours or so. Follow up 10-14 days postoperatively in clinic. Weightbearing as tolerated right lower extremity. Discharge disposition and antibiotics per Medicine. Time Spent With Patient Time with patient: less than 15 minutes Quality VTE Deep Vein Thrombosis/Pulmonary Embolism Present on Admission: No
--- NOTE | 2024-10-30 11:42 | OT.IP.EVAL ---
Current Diagnoses Cellulitis, unspecified (10/29/24) Other infective bursitis, right knee (10/29/24) Surgery Performed Operation Date: 10/29/24 16:45 Actual Procedures p Incision and Drainage Knee(Right) - Marisabel Severino MD Past Medical History (Last Reviewed 10/30/24 @ 07:59 by Elton Hannah MD) Patient denies medical problems Surgical History (Last Reviewed 10/30/24 @ 07:59 by Elton Hannah MD) History of carpal tunnel surgery of left wrist History of carpal tunnel surgery of right wrist History of tonsillectomy Occupational Therapy Inpatient Evaluation/Re-Eval M1 PT/OT-IP Prior Functional Status Start: 10/30/24 13:21 Freq: NEEDED Status: Active Protocol: Document 10/30/24 16:51 CGR (Rec: 10/30/24 16:58 CGR [id number]) Medical Review Prior Functional Status Medical History Reviewed Yes Communication pt is an effective verbal communicator Mobility and Gait pt was independent with all mobilities and ambulation without AD Activities of Daily Living and IADL's Pt was IND in all ADLs and IADLs at baseline. 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 Social History Household Members spouse,children Number of Floors (Floors) Two Floors Number of Stairs To Enter/Railing? 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 OT-IP Current Condition Start: 10/30/24 16:51 Freq: Status: Active Protocol: Document 10/30/24 16:51 CGR (Rec: 10/30/24 16:58 CGR [id number]) Occupational Therapy Current Condition Current Condition Evaluation Date 10/30/24 Treatment Diagnosis I&D R knee for spetic perpatellar bursitis Diagnosis Onset Date 10/29/24 Weight Bearing Status Weight Bearing Status Weight Bear as Tolerated M3 OT- IP Subjective and Pain Start: 10/30/24 16:51 Freq: Status: Active Protocol: Document 10/30/24 16:51 CGR (Rec: 10/30/24 16:58 CGR [id number]) OT- Subjective Occupational Therapy Visit Type Type Initial Evaluation Visit Start Time 11:22 Visit Stop Time 11:42 Notes Pt's present throughout OT Pain Assessment Pain When Pain Assessed At Rest Pain Present Pain Present Denied Pain M4 OT- IP ADL's Start: 10/30/24 16:51 Freq: Status: Active Protocol: Document 10/30/24 16:51 CGR (Rec: 10/30/24 16:58 CGR [id number]) OT [id number] General Evaluation Self-Feeding Ability Independent Areas Needing Assistance Drinking From Cup/Glass Comments OT Self-Feeding Comments drinking coffee OT ADL-Grooming General Evaluation Grooming Ability Standby Assistance Areas Needing Assistance Face Washing Comments OT Grooming Comments standing at sink OT ADL-Oral Care Comments Oral Care Comments pt declined to brush teeth as he was currently drinking coffee OT ADL-Dressing General Eval Lower Body Dressing Ability Independent Areas Needing Assistance Socks Comments OT Dressing Comments seated in chair OT ADL-Toileting General Evaluation Toileting Ability Independent Comments OT Toileting Comments simulated seated on toielt OT ADL-Bathing Comments OT Bathing Comments not peformed M5 OT- IP IADL's Start: 10/30/24 16:51 Freq: Status: Active Protocol: Document 10/30/24 16:51 CGR (Rec: 10/30/24 16:58 CGR [id number]) OT-Instrumental Activities of Daily Living Deficits IADL Deficits Identified No Deficits Home Safety Awareness Awareness of Need for Assistance at Home Good Awareness Ability to Problem Solve Emergency Able to Problem Solve Situations Medication Management Medication Management No Deficits Identified Money Management Money Management No Deficits Identified Meal Preparation Meal Preparation No Deficits Identified Drying Unit Felting Machine Operator Drying Unit Felting Machine Operator No Deficits Identified Driving Driving Comments 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 OT- IP Functional Cognition Start: 10/30/24 16:51 Freq: Status: Active Protocol: Document 10/30/24 16:51 CGR (Rec: 10/30/24 16:58 CGR [id number]) Cognitive Factors Limiting Selfcare Function Cognitive Ability Level of Alertness Alert Patient Orientation Name,Age,Birthday,Month,Date, Year,Day of Week,Place, Situation Attention Span Ability Capable of Focused Attention, Capable of Sustained Attention Ability to Follow Commands Able to Follow Multi-Step Commands OT- Vision and Hearing OT- Hearing Assessment OT- Hearing Assessment WFL OT- Vision Assessment Visual Acuity WFL Visual Attentiveness WFL Occular Pursuits WFL Visual Convergence WFL M7 OT- IP Mobility and Balance Start: 10/30/24 16:51 Freq: Status: Active Protocol: Document 10/30/24 16:51 CGR (Rec: 10/30/24 16:58 CGR [id number]) OT-Transfer Assessment Sit to and From Stand Sit to and from Stand Independent Transfers Transfer Ability Independent Technique Transfer Destination Chair,Toilet Transfer Technique Stand Step Pivot Devices Transfer Assistive Devices Gait Belt Comments Mobility Comments Pt ambulated around the room without AD OT- Balance Assessment Sitting Balance and Reactions Static Sitting Balance Ability Normal Dynamic Sitting Balance Ability Normal M8 OT- IP Objective Assessments Start: 10/30/24 16:51 Freq: Status: Active Protocol: Document 10/30/24 16:51 CGR (Rec: 10/30/24 16:58 CGR [id number]) OT Gross Range of Motion Upper Extremity Range of Motion Assessment Within Functional Limits OT Strength Upper Extremity Strength Assessment Within Functional Limits Comments Strength Comments 5/5 OT- Coordination Assessment Upper Extremity Finger to Nose Test Within Functional Limits Finger Tapping Test Within Functional Limits OT Sensation Assessment Edema Edema Absent M9 OT- IP Assessment and Plan Start: 10/30/24 16:51 Freq: Status: Active Protocol: Document 10/30/24 16:51 CGR (Rec: 10/30/24 16:58 CGR [id number]) OT Summary Assessment and Plan Potential Rehabilitation Potential Excellent Analytic Complexity at Evaluation Low Summary Progress Towards Goals Goals Met Assessment Summary Pt presents as a low complexity evaluation s/p admit for I&D of R septic prepatellar bursa. Pt is performing at his baseline for ADLs and functional mobility. No further OT needs. Frequency of Treatment Frequency Of Treatment Discharge Discharge Recommendations OT Discharge Recommendations Home Transportation Needs at Discharge Private Vehicle
[2024-10-30 12:00] VITALS: BP 131/71; PULSE 67; RESP 16; TEMP 36.6; O2SAT 97
[2024-10-30] MEDS: cefTRIAXone 2,000 MG in SODIUM CHLORIDE 0.9% 100 ML 200 MG IV (12:42)
[2024-10-30 13:37] LABS: Vancomycin Trough 7.5 ug/mL (10-20)
[2024-10-30] MEDS: VANCOMYCIN TROUGH 1 REQUEST MISC (15:28)
[2024-10-30 16:00] VITALS: BP 125/77; PULSE 89; RESP 16; TEMP 36.7; O2SAT 98
[2024-10-30 20:00] VITALS: BP 154/77; PULSE 89; RESP 20; TEMP 36.3; O2SAT 97; O2SAT 98
[2024-10-30] MEDS: SENNOSIDES 8.6 MG TABLET 17.2 MG PO (21:37)
[2024-10-30] MEDS: DOCUSATE 100 MG CAPSULE PO (21:37)
[2024-10-31] VITALS: O2SAT 97
[2024-10-31 04:00] VITALS: BP 154/83; PULSE 86; RESP 20; TEMP 36.2; O2SAT 96; O2SAT 97
[2024-10-31 05:28] LABS: Add Manual Diff / Slide Review NO; Basophils Absolute Auto 100 /uL (0-100); Basophils Percent Auto 0.6 % (0-2); Eosinophils Absolute Auto 100 /uL (0-450); Hematocrit 42.4 % (41-53); Hemoglobin 13.8 g/dL (13.5-17.5); Lymphocytes Absolute Auto 2300 /uL (1100-4500); Lymphocytes Percent Auto 17.2 % (25-40); Mean Corpuscular HGB Conc 32.7 % (30-36); Mean Corpuscular Volume 91.8 fL (80-100); Monocytes Absolute Auto 1000 /uL (0-900); Monocytes Percent Auto 7.9 % (3-14); Neutrophils Absolute Auto 9700 /uL (1500-7000); Neutrophils Percent Auto 73.3 % (50-75); Platelet Count 259 X10^3/uL (150-400); Red Blood Cell Count 4.62 X10^6/uL (4.5-5.9); Red Cell Distribution Width 13.9 % (11.6-14.8); White Blood Cell Count 13.2 X10^3/uL (4.5-11.0)
[2024-10-31 05:41] LABS: BUN Creatinine Ratio 15.7 (6-22); Blood Urea Nitrogen 13 mg/dL (9-20); Calcium 8.4 mg/dL (8.4-10.2); Carbon Dioxide 26 mmol/L (22-32); Chloride 108 mmol/L (98-107); Estimated Glomerular Filt Rate > 60 mL/min (>60); Glucose 108 mg/dL (70-100); HEMOLYSIS < 15 (0-50); Magnesium 2.2 mg/dL (1.6-2.3); Potassium 3.9 mmol/L (3.4-5.1); Sodium 138 mmol/L (137-145)
[2024-10-31] MEDS: ACETAMINOPHEN 325 MG TABLET 650 MG PO (06:27)
[2024-10-31] MEDS: IBUPROFEN 400 MG TABLET PO (06:27)
--- NOTE | 2024-10-31 07:50 | PM.PNPO.1 ---
Subjective Subjective Date Patient Seen: 10/31/24 Time Patient Seen: 07:50 Interval history: Patient's pain is controlled with oral medication. ?Pain is localized to surgical site. ?Patient declines any new numbness or tingling at the surgical extremity. ?Patient denies any shortness of breath, dizziness, light-headedness, nausea, vomiting, fever or chills. He has been working with physical therapy for mobilization. Patient feels ready to go home. Exam Vital Signs (past 8 hours): - 10/31/24 00:00 10/31/24 04:00 10/31/24 04:00 Temperature 97.2 F L Pulse Rate 86 Respiratory Rate 20 Blood Pressure 154/83 H Pulse Oximetry 97 97 96 Oxygen Delivery Method Room Air Room Air Oxygen Flow Rate 0 0 0 Oxygen Delivery Method Room Air Oxygen Flow Rate 0 Narrative Exam Narrative: 5/5 strength in hip flexors, quadriceps, hamstrings, DF, PF, EHL bilaterally. Sensation to light touch intact throughout BLE. Calves soft, compressible, nontender. No warmth or discharge noted from the wound site. Sutures well-maintained. Dressing placed intraoperatively dry and intact. Scant blood seeping through bandage. Drain intact minimal output. Resp Effort & Inspection: normal respiratory effort and able to speak in complete sentences Objective Labs 10/31/24 05:20 10/31/24 05:20 Labs: Laboratory Results - last 24 hr 10/30/24 10/31/24 12:56 05:20 WBC 13.2 H RBC 4.62 Hgb 13.8 Hct 42.4 MCV 91.8 MCH 30.0 MCHC 32.7 RDW 13.9 Plt Count 259 Neut % (Auto) 73.3 Lymph % (Auto) 17.2 L [place] % (Auto) 7.9 Eos % (Auto) 1.0 L Baso % (Auto) 0.6 Neut # (Auto) 9700 H Lymph # (Auto) 2300 [place] # (Auto) 1000 H Eos # (Auto) 100 Baso # (Auto) 100 Sodium 138 Potassium 3.9 Chloride 108 H Carbon Dioxide 26 BUN 13 Creatinine 0.83 Estimated GFR > 60 BUN/Creatinine Ratio 15.7 Glucose 108 H Calcium 8.4 Magnesium 2.2 Vancomycin Trough 7.5 L PFSH Medical History Patient denies medical problems Surgical History History of carpal tunnel surgery of right wrist History of carpal tunnel surgery of left wrist History of tonsillectomy Family History Mother Cancer Father Diabetes mellitus Social History household members: spouse and children Smoking Status: Current every day smoker alcohol intake: current Assessment & Plan Post-op Postoperative Procedures: Procedures Operation Date: 10/29/24 16:45 Actual Procedure Side Surgeon p Incision and Drainage Knee Right Marisabel Severino MD Postoperative day: 2 Postoperative status: doing well Postoperative plan: routine post-op care, ambulate and discharge Postoperative plan narrative: Strep dysgalac on preliminary culture result. Resistant to clindamycin. CBC and chemistry normalizing. Drain removed today. Wound is redressed. May remove Nima wrap after tomorrow. If dressing becomes dirty or blood seeping through may change dressing otherwise keep dressing on until follow up in clinic. Once patient is determined medically stable by hospitalist may discharge home with appropriate oral antibiotics. Patient follow up in clinic 10 to 14 days postop. Weightbearing as tolerated in the right lower extremity. 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 Recommend avoiding any prolonged kneeling or squatting until follow up in clinic. Keep dressing clean and dry. Discharge disposition, pain management and antibiotics per Medicine. Time Spent With Patient Time with patient: 15-24 minutes Quality VTE Deep Vein Thrombosis/Pulmonary Embolism Present on Admission: No
[2024-10-31 08:00] VITALS: BP 135/84; PULSE 84; RESP 16; TEMP 36.1; O2SAT 100; O2SAT 98
[2024-10-31] MEDS: ASPIRIN EC 81 MG TABLET PO (08:30)
--- NOTE | 2024-10-31 09:00 | P.DS_ITS ---
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 He notes that it was getting better and it was resolving and then yesterday he noted significant worsening pain. It progressively worsened and he went to the emergency [facility]. He was noted to have an abrasion with hypertrophied skin on the anterior aspect of his knee erythema and significant swelling in his prepatellar bursa. He had significant restricted range motion and there was concern for possible septic knee. He also had an elevated white count. He was transferred to [facility] Emergency room for further evaluation. Discharge Providers Provider Date of admission: 10/29/24 14:03 Discharge Date: 10/31/24 Consults: 10/29/24 18:08 Consult to Discharge Planning Routine Comment: Consult to Occupational Therapy Evaluate & Treat Comment: Physician Instructions: Evaluate and treat Consult to Physical Therapy Evaluate & Treat Comment: Physician Instructions: Evaluate and Treat Discharge provider: Elton Hannah MD Summary Hospital Course Discharge Diagnosis: 1. Bacterial Prepatellar bursitis. Present on admission and improved. Hospital Course: He was admitted with a right knee infection. He was taken to the OR and found to have a prepatellar bursitis and underwent incision and drainage number removal. The patient grew a strep out and was treated with vanco and ceftriaxone until cultures finalized. His drain was removed on the morning of discharge and he had no pain and felt much better. I discussed the case with Orthopedics and he will discharge on cephalexin for 5 additional days, and no kneeling on the knee. Orthopedics will arrange follow up in 7-10 days. He declines any pain medications. Status at Discharge Cognitive/behavioral status at discharge: oriented Functional status at discharge: independent ambulation Overall status at discharge: patient is back to baseline Time Spent with Patient Time spent: Greater than 30 minutes Exam Vital Signs (past 8 hours): - 10/31/24 04:00 10/31/24 04:00 10/31/24 08:00 Temperature 97.2 F L 97 F L Pulse Rate 86 84 Respiratory Rate 20 16 Blood Pressure 154/83 H 135/84 Pulse Oximetry 97 96 100 Oxygen Delivery Method Room Air Oxygen Flow Rate 0 0 0 10/31/24 08:00 Temperature Pulse Rate Respiratory Rate Blood Pressure Pulse Oximetry 98 Oxygen Delivery Method Room Air Oxygen Flow Rate Oxygen Delivery Method Room Air Oxygen Flow Rate 0 Narrative Exam Narrative: NAD, alert and oriented. Fluent speech. Lungs are clear, normal rate and effort. Heart is regular, no murmur gallop or rub. Abdomen is soft, non distended. Extremities are free of edema. Right knee wrapped, wound was examined by Orthopedics today. Objective Labs 10/31/24 05:20 10/31/24 05:20 Labs: Laboratory Results - last 24 hr 10/30/24 10/31/24 12:56 05:20 WBC 13.2 H RBC 4.62 Hgb 13.8 Hct 42.4 MCV 91.8 MCH 30.0 MCHC 32.7 RDW 13.9 Plt Count 259 Neut % (Auto) 73.3 Lymph % (Auto) 17.2 L Harvey % (Auto) 7.9 Eos % (Auto) 1.0 L Baso % (Auto) 0.6 Neut # (Auto) 9700 H Lymph # (Auto) 2300 Harvey # (Auto) 1000 H Eos # (Auto) 100 Baso # (Auto) 100 Sodium 138 Potassium 3.9 Chloride 108 H Carbon Dioxide 26 BUN 13 Creatinine 0.83 Estimated GFR > 60 BUN/Creatinine Ratio 15.7 Glucose 108 H Calcium 8.4 Magnesium 2.2 Vancomycin Trough 7.5 L PFSH Medical History Patient denies medical problems Surgical History History of carpal tunnel surgery of right wrist History of carpal tunnel surgery of left wrist History of tonsillectomy Family History Mother Cancer Father Diabetes mellitus Social History household members: spouse and children Smoking Status: Current every day smoker alcohol intake: current Discharge Assessment & Plan Assessment and Plan Assessment: 1. Bacterial Prepatellar bursitis. Present on admission and improved. Plan of Treatment: Discharge home with cephalexin 500 q.i.d. 5 day course, orthopedics in 7-10 days. Discharge Plan Discharge Plan Patient Disposition: Home Provider Discharge Comment: Stable for discharge on oral antibiotics with close orthopedic follow up, which is arranged. Discharge orders & Medications Prescriptions: New cephalexin 500 mg capsule 500 mg PO QID Qty: 20 0RF Follow up/Referrals: Marisabel Severino MD [Physician] - Discharge Health Status Multidrug resistant organism: No MDRO Diet/Activity/Treatments Diet: Regular Activity: As tolerated. no kneeling on right knee. Visit Report/Discharge Packet Instructions: DI for Prescription Opioid Use, DI for Incision and Drainage, [facility]: Wound Care Stand Alone Forms: Patient Portal/API Quality VTE Deep Vein Thrombosis/Pulmonary Embolism Present on Admission: No
--- NOTE | 2024-11-08 15:45 | PC.NURSE ---
LATE ENTRY- per RN 10/29 dose of Vancomycin started at 1336 was completed at 1600.
== END 2024-10-31 09:27 | disposition home or self-care (01) | DRG 317 ==
LOC: ED 13:54 → AC 14:04
PROVIDERS: Orthopaedic Surgery; Admitting Provider Internal Medicine; Emergency Provider Emergency Medicine; Referring Provider Emergency Medicine; Visit Provider Internal Medicine
PROC: 0MBN0ZZ Excision of Right Knee Bursa and Ligament, Open Approach (ICD-10-PCS; principal; 2024-10-29 16:45)
DX: M71.161 Other infective bursitis, right knee (principal); L03.115 Cellulitis of right lower limb; B95.4 Other streptococcus as the cause of diseases classified elsewhere; R00.0 Tachycardia, unspecified; I10 Essential (primary) hypertension; F17.200 Nicotine dependence, unspecified, uncomplicated
CPT/HCPCS: 36415; 73701; 80048; 80053; 80202; 83605; 83735; 84145; 85025; 85651; 86140; 87070; 87075; 87077; 87147; 87186; 87205; 89051; 96365; 96368; 96375; 96376; 97116; 97161; 97165; 99284; 99291; J0131; J0696; J1100; J1171; J2250; J2405; J2704; J3010; Q9967